=== PATIENT | female | born 1960 | race Caucasian/White ===

== ENCOUNTER 2020-06-11 09:24 | Outpatient (REF) | payer OTHER, SELFPAY ==
--- NOTE | ~2020-06-11 | XR_ITS ---
EXAMINATION: XR HAND, RIGHT CLINICAL INFORMATION: Right-sided hand pain COMPARISON: None TECHNIQUE: PA, lateral, and oblique views of the right hand. FINDINGS: There is no evidence of fracture, dislocation or destructive lesion. There is degenerative change at the second DIP joint with joint space narrowing and subchondral cystic change. Similar findings seen in the fifth DIP joint. There is marginal osteophyte formation at the first CMC joint. Carpal alignment normal. XR/XR hand RT min 3V IMPRESSION: Degenerative change noted. No evidence for fracture or acute process.
== END 2020-06-11 09:25 | disposition home or self-care (01) ==
LOC: HO.HOSX 09:24
PROVIDERS: PCP Internal Medicine; Visit Provider Orthopaedic Surgery
DX: M79.641 Pain in right hand (principal); M18.11 Unilateral primary osteoarthritis of first carpometacarpal joint, right hand; R20.0 Anesthesia of skin; R20.2 Paresthesia of skin
CPT/HCPCS: 20600; 73130; J1020

== ENCOUNTER 2020-08-01 09:54 | Outpatient (REF) | payer OTHER, SELFPAY ==
--- NOTE | 2020-08-01 | EMG_ITS ---
Right median and ulnar motor and sensory studies were performed. Right radial sensory study was performed and paraspinal muscles were tested with a needle. IMPRESSION: 1. Mild right median neuropathy across carpal tunnel. 2. Mild right ulnar neuropathy across cubital tunnel. MD DILEEP Aden/YANICK / [id number]
== END 2020-08-01 09:55 | disposition home or self-care (01) ==
LOC: HO.NEURO 09:54
PROVIDERS: PCP Internal Medicine; Visit Provider Orthopaedic Surgery
DX: R20.0 Anesthesia of skin (principal); R20.2 Paresthesia of skin
CPT/HCPCS: 95886; 95909

== ENCOUNTER → 2020-08-19 11:59 | Outpatient (BNVA) | payer OTHER, SELFPAY | PROVIDERS: PCP Internal Medicine; Visit Provider Orthopaedic Surgery ==

== ENCOUNTER 2020-09-13 09:32 | Outpatient (REF) | payer OTHER, SELFPAY ==
--- NOTE | ~2020-09-13 | MM_ITS ---
EXAMINATION: BONE DENSITOMETRY CLINICAL INDICATION: Screening for osteoporosis. COMPARISON: None (current study represents initial baseline exam). TECHNIQUE: Using a [employer] DXA System (software version: 13.1) manufactured by [employer], dual-energy x-ray absorptiometry was performed of the lumbar spine and left hip. The images are of good technical quality. Summary results are attached. FINDINGS: AP SPINE L1-L4: BMD 0.938 g/cm2, Z-score -0.6, T-score -2.0, osteopenia. LEFT FEMUR, NECK: BMD 0.713 g/cm2, Z-score -0.9, T-score -2.3, osteopenia. LEFT FEMUR, TOTAL: BMD 0.794 g/cm2, Z-score -0.6, T-score -1.7, osteopenia. IDENTIFIED RISK FACTORS: Current smoker. Parental hip fracture. Menopause. HISTORY OF FRACTURE: Spine. MEDICATIONS: Vitamin D. MM/XR DEXA axial skeleton IMPRESSION: 1. DIAGNOSIS: Osteopenia based on the lowest T-score value of -2.3 in the femoral neck applying World Health Organization criteria. 2. 10-YEAR FRACTURE RISK PREDICTION, FRAX: Major osteoporotic fracture (clinical spine, forearm, hip or shoulder) 32.4%. Hip fracture 5.9%. 3. Treatment Recommendations: NOF guidelines recommend consideration for treatment in postmenopausal women and men age 50 and older presenting with the following: -A hip or vertebral (clinical or morphometric) fracture. -T-score less than or equal to -2.5 at the femoral neck or spine after appropriate evaluation to exclude secondary causes. -Low bone mass at the hip or spine and a 10-year fracture probability by FRAX of greater than or equal to 3% for hip fracture or greater than or equal to 20% for major osteoporotic fracture based on the [place] adapted WHO algorithm. 4. Other Recommendations: All treatment decisions require clinical judgment and consideration of individual patient factors, including patient preferences, comorbidities, previous drug use, risk factors not captured in the FRAX model (e.g. frailty, falls, vitamin D deficiency, increased bone turnover, interval significant decline in bone density) and possible under or overestimation of fracture risk by FRAX. Additional medical evaluation for secondary cause of low bone mineral density may be appropriate. FUTURE SCAN RECOMMENDATION: People with diagnosed cases of osteoporosis or at high risk for fracture should have regular bone mineral density tests. For patients eligible for Medicare, routine testing is allowed once every 2 years. The testing frequency can be increased to one year for patients who have rapidly progressing disease, those who are receiving or discontinuing medical therapy to restore bone mass, or have additional risk factors.
--- NOTE | ~2020-09-13 | MM_ITS ---
EXAMINATION: MM SCREENING DIGITAL BREAST TOMOSYNTHESIS, BILATERAL CLINICAL INFORMATION: Screening. Asymptomatic. The lifetime risk of breast cancer based on the Tyrer-Cuzick Model is 7%. COMPARISON: Mammography: 12/15/2017, 11/12/2016, 10/03/2015 TECHNIQUE: Digital breast tomosynthesis is performed in both the craniocaudal and mediolateral oblique views along with computer-aided detection (CAD). Synthesized 2D images are generated from the tomosynthesis. FINDINGS: The breasts are extremely dense, which lowers the sensitivity of mammography (ACR BI-RADS breast composition Category d). There are no significant masses, abnormal calcifications, or other abnormalities. There is fine fibronodular parenchymal pattern similar to prior studies. No developing density. There are scattered punctate round calcifications again seen. The axilla and skin contours are unremarkable. MM/MM tomosynthesis screening BI IMPRESSION: No mammographic evidence of malignancy. ASSESSMENT: BI-RADS 2: Benign RECOMMENDATION: Routine annual mammography screening. This patient's information was entered into a reminder system with a target due date for their next mammogram.
== END 2020-09-13 09:33 | disposition home or self-care (01) ==
LOC: HO.MAMMO 09:32
PROVIDERS: Visit Provider Internal Medicine
DX: Z12.31 Encounter for screening mammogram for malignant neoplasm of breast (principal); Z13.820 Encounter for screening for osteoporosis; M85.80 Other specified disorders of bone density and structure, unspecified site; F17.200 Nicotine dependence, unspecified, uncomplicated; Z87.81 Personal history of (healed) traumatic fracture; Z78.0 Asymptomatic menopausal state; Z79.899 Other long term (current) drug therapy
CPT/HCPCS: 77063; 77067; 77080

== ENCOUNTER 2020-10-03 09:57 | Day surgery (SDC) | payer OTHER, SELFPAY ==
[2020-10-03 09:15] VITALS: BMI 22.3
[2020-10-03 10:08] VITALS: BP 117/69; PULSE 75; RESP 18; TEMP 37.2; O2SAT 96
[2020-10-03 11:25] VITALS: BP 112/54; PULSE 66; RESP 16; TEMP 36.1; O2SAT 96
--- NOTE | 2020-10-03 11:35 | MHC.SHP ---
Pre-Procedural Eval Section A Date of Service: 10/03/20 The patient is an INPATIENT: No The History & Physical has been completed within 30 days and I have reviewed it.: Yes Section B Chief Complaint: carpal tunnel syndrome.right Allergies: Allergies Allergy/AdvReac Type Severity Reaction Status Date / Time No Known Allergies Allergy Unverified 06/11/20 09:46 Plan I have reviewed the history and physical and performed a pertinent physical examination on my patient. No changes have occurred unless specified.
--- NOTE | 2020-10-03 11:35 | W.PM.OPN ---
Operative Note Operative Note Date of Service: 10/03/20 Narrative: Preop diagnosis: 1. Right Carpal tunnel syndrome Postop diagnosis: same Procedure: 1. Right Carpal tunnel release Surgeon: Tiki Lima MD Anesthesia: local block using 1% lidocaine with epinephrine Findings: Thickened transverse carpal ligament. EBL: Less than 5 mL Specimens: None Complications: None Disposition: Brought to recovery room in stable condition Plan: Follow-up for 7-10 days for wound check and suture removal Indications: The patient is 60 years old, with right carpal tunnel syndrome that has been unresponsive to nonoperative management. The risks and benefits of operative treatment including but not limited to risk of damage to blood vessels, nerves, tendons, infection, persistent pain, persistent symptoms, or possible need for additional surgery were discussed with the patient and the patient wishes to proceed with surgery. Procedure: Once consent was obtained a local block was performed using a combination of 1% lidocaine with epinephrine. The patient was then brought back to the operating suite and placed on the operative table in supine position. A tourniquet was applied to the proximal aspect of the right upper extremity and the limb was prepped and draped in a standard surgical fashion. Once assured that we had a good block, a 1.5 cm longitudinal incision was made centered over the carpal tunnel. The incision was made through the skin to the subcutaneous tissues using a #15 blade. Dissection was made down to the level of the transverse carpal ligament with care being taken to protect the palmar cutaneous nerve. Once the transverse carpal ligament was clearly visualized, a longitudinal incision was made in the transverse carpal ligament 1st using a #15 blade, then using tenotomy scissors under direct visualization. Care was taken to look for and protect the motor branch of the median nerve when seen in this area. Once satisfied with our carpal tunnel release the wound was copiously irrigated with normal saline and hemostasis was obtained with a brief period of local pressure. The skin edges were reapproximated with some 5.0 nylon suture material and a sterile dressing was applied. The patient appears to have tolerated the procedure well and with no complications. All digits were well vascularized at the conclusion of the case.
== END 2020-10-03 11:54 | disposition home or self-care (01) ==
PROVIDERS: PCP Internal Medicine; Visit Provider Orthopaedic Surgery
PROC: (CPT 64721; principal; 2020-10-03 11:00)
DX: G56.01 Carpal tunnel syndrome, right upper limb (principal); G56.21 Lesion of ulnar nerve, right upper limb; M18.11 Unilateral primary osteoarthritis of first carpometacarpal joint, right hand; R20.2 Paresthesia of skin; M79.7 Fibromyalgia; Q79.60 Ehlers-Danlos syndrome, unspecified; F41.9 Anxiety disorder, unspecified; Z79.899 Other long term (current) drug therapy
CPT/HCPCS: 64721

== ENCOUNTER 2020-10-09 09:40 | Outpatient (REF) | payer OTHER, SELFPAY ==
--- NOTE | 2020-10-09 09:44 | EMG_ITS ---
This is a 60-year-old woman with a 6-week history of left neck and shoulder pain with some ice pick like sensations, minimal radiation to the left upper extremity. She is 1 week status post right carpal tunnel release. She is known to have 2 herniated discs in her cervical spine from an MRI in the remote past. PHYSICAL EXAMINATION: She is alert and oriented with normal intellectual functions. Cranial nerves II through XII are normal. Muscle tone and strength are normal in all 4 extremities. Reflexes symmetrical. IMPRESSION: Rule out cervical radiculopathy. Nerve conduction EMG study: Normal electrodiagnostic study of the left upper extremity with no evidence of carpal tunnel syndrome or nerve entrapment. EMG of the left C5-T1 innervated muscles including paraspinal cervical muscles suggestive of mild chronic mid cervical radiculopathy. MD TOYA Arnold/YANICK / [id number]
== END 2020-10-09 09:41 | disposition home or self-care (01) ==
LOC: HO.NEURO 09:40
PROVIDERS: Visit Provider Orthopaedic Surgery
DX: R20.0 Anesthesia of skin (principal); R20.2 Paresthesia of skin
CPT/HCPCS: 95886; 95910

== ENCOUNTER → 2020-10-14 09:43 | Outpatient (BNVA) | payer OTHER, SELFPAY | PROVIDERS: Visit Provider Orthopaedic Surgery ==

== ENCOUNTER → 2020-11-05 08:59 | Outpatient (BNVA) | payer OTHER, SELFPAY | DX: R31.9 Hematuria, unspecified (principal) | CPT/HCPCS: 51798 ==

== ENCOUNTER 2020-11-20 08:18 | Outpatient (REF) | payer OTHER, SELFPAY ==
--- NOTE | ~2020-11-20 | XR_ITS ---
EXAMINATION: TWO-VIEW CHEST AND THREE-VIEW STERNUM CLINICAL INFORMATION: Contusion COMPARISON: Chest x-ray of April 10, 2008 TECHNIQUE: Two-view chest and three-view sternum FINDINGS: PA and lateral views of the chest does not demonstrate any evidence of acute parenchymal disease, pneumothorax, or pleural effusion. Heart normal size. No evidence of pulmonary edema. There is some blunting of the posterior sulcus likely related to small amount of pleural parenchymal scarring rather than effusion. No acute sternal fractures identified. No bone destruction is seen. There is some anterior soft tissue swelling present. XR/XR chest 2V IMPRESSION: No acute parenchymal disease within the chest. No sternal fracture identified.
--- NOTE | ~2020-11-20 | XR_ITS ---
EXAMINATION: TWO-VIEW CHEST AND THREE-VIEW STERNUM CLINICAL INFORMATION: Contusion COMPARISON: Chest x-ray of April 10, 2008 TECHNIQUE: Two-view chest and three-view sternum FINDINGS: PA and lateral views of the chest does not demonstrate any evidence of acute parenchymal disease, pneumothorax, or pleural effusion. Heart normal size. No evidence of pulmonary edema. There is some blunting of the posterior sulcus likely related to small amount of pleural parenchymal scarring rather than effusion. No acute sternal fractures identified. No bone destruction is seen. There is some anterior soft tissue swelling present. XR/XR sternum min 2V IMPRESSION: No acute parenchymal disease within the chest. No sternal fracture identified.
--- NOTE | ~2020-11-20 | US_ITS ---
EXAMINATION: US RETROPERITONEAL LIMITED (RENAL ONLY) CLINICAL INFORMATION: CT abdomen and pelvis 01/14/2016.. COMPARISON: None TECHNIQUE: Real-time imaging of the kidneys. FINDINGS: RIGHT KIDNEY: 10.3 x 3.9 x 5.7 cm (SAG x AP x TRV). The kidney is normal in size, contour, and echogenicity. Renal cortical thickness is normal. There are 2 stones measuring 3 mm in the upper and lower pole. No focal parenchymal lesions or hydronephrosis. LEFT KIDNEY: 11.2 x 4.9 x 5.5 cm (SAG x AP x TRV). The kidney is normal in size, contour, and echogenicity. Renal cortical thickness is normal. There is a 4 mm stone in the lower pole. There is a 1.7 x 1.2 x 1.5 cm cyst in the upper pole. No hydronephrosis. US/US renal BI IMPRESSION: Small bilateral renal stones. Small left renal cyst..
== END 2020-11-20 08:19 | disposition home or self-care (01) ==
LOC: HO.HMGCX 08:18
PROVIDERS: PCP Internal Medicine; Referring Provider Physician Assistant Medical
DX: S20.219A Contusion of unspecified front wall of thorax, initial encounter (principal); R31.9 Hematuria, unspecified
CPT/HCPCS: 71046; 71120; 76775

== ENCOUNTER → 2020-11-26 13:27 | Outpatient (BNVA) | payer OTHER, SELFPAY | PROVIDERS: PCP Internal Medicine ==

== ENCOUNTER 2020-12-20 11:47 | Outpatient (REF) | payer OTHER, SELFPAY | END 2020-12-20 11:48 | disposition home or self-care (01) | LOC: HO.HMGCLDS 11:47 | PROVIDERS: PCP Internal Medicine | DX: N39.0 Urinary tract infection, site not specified (principal) | CPT/HCPCS: 87086 ==

== ENCOUNTER → 2021-07-02 09:36 | Outpatient (BNVA) | payer OTHER, SELFPAY | PROVIDERS: PCP Internal Medicine; Visit Provider Orthopaedic Surgery | DX: M18.11 Unilateral primary osteoarthritis of first carpometacarpal joint, right hand (principal) | CPT/HCPCS: 20605; J1020 ==

== ENCOUNTER 2021-10-30 03:50 | Emergency (ER) | payer OTHER, SELFPAY ==
--- NOTE | ~2021-10-30 | CT_ITS ---
EXAMINATION: CT ABDOMEN AND PELVIS WITHOUT CONTRAST CLINICAL INFORMATION: Left flank pain COMPARISON: 01/14/2016 TECHNIQUE: Multidetector volumetric imaging was performed from the superior aspect of the liver through the pubic symphysis. Sagittal and coronal reformatted images were obtained on the technologist's workstation. This CT examination was performed using dose optimization techniques as appropriate, variously including the following: *Automated exposure control *Adjustment of mA and/or kV according to patient size (this includes techniques or standardized protocols for targeted exams where dose is matched to indication/reason for exam; i.e. extremities or head) *Use of iterative reconstruction technique DLP: 530 mGy-cm FINDINGS: LUNG BASES: The visualized lung bases are unremarkable. LIVER, GALLBLADDER, AND BILIARY TREE: The liver is normal in size, shape, and attenuation. No focal hepatic lesion or biliary ductal dilatation is present. The gallbladder is unremarkable with no evidence of radiopaque gallstones, gallbladder wall thickening, or obvious pericholecystic inflammatory changes. PANCREAS: Unremarkable. SPLEEN: Unremarkable. ADRENAL GLANDS: Unremarkable. KIDNEYS AND URETERS: The kidneys are normal in size, shape, and attenuation. There are a few punctate nonobstructive calculi within each kidney, numbering at least 3 within the left kidney and one within the right kidney. No ureteral calculi. No hydronephrosis or hydroureter. No perinephric stranding. BLADDER: Unremarkable. GASTROINTESTINAL TRACT: Sigmoid colonic diverticulosis. No evidence of diverticulitis. GI tract otherwise unremarkable. ABDOMINAL WALL: No significant hernia is appreciated. LYMPH NODES: Normal. VASCULAR: Unremarkable. PELVIC VISCERA: There are a few small uterine fibroids. No adnexal abnormalities. OSSEOUS STRUCTURES: Unremarkable. CT/CT abdomen pelvis wo IV con IMPRESSION: * No ureteral calculi or hydronephrosis. * There are a few bilateral punctate nonobstructive intrarenal calculi as described. * Sigmoid colonic diverticulosis without evidence of diverticulitis.
[2021-10-30 04:00] VITALS: BP 139/64; PULSE 77; RESP 18; TEMP 36.7; O2SAT 95; BMI 25.6
[2021-10-30 04:36] LABS: Appearance Urine Cloudy; Color Urine Yellow; Glucose Urine UA Negative (Negative); Leukocyte Esterase Urine Large (3+) (Negative); Nitrite Urine Positive (Negative); PH 5.5 (5.0-9.0); Urine Blood Moderate (2+) (Negative); Urine Ketones Negative (Negative); Urine Protein Trace mg/dL (Neg-Trace)
[2021-10-30 04:50] VITALS: BP 133/73; PULSE 69; RESP 17; TEMP 36.8; O2SAT 97
--- NOTE | 2021-10-30 04:50 | ED.GENADULT ---
HPI - General Adult General Chief complaint: Abdominal Pain Stated complaint: L side pain Time Seen by Provider: 10/30/21 04:35 Source: patient Mode of arrival: ambulatory Limitations: no limitations History of Present Illness HPI narrative: Patient comes to the emergency room complaining of left-sided flank pain for approximately 48 hours. Patient states that she was out with a friend, they were both drinking and laughing. Patient states that she might have left to heart and pulled a muscle. Patient denies any fever or chills, no trauma, no hematuria or dysuria. No abdominal pain. Related Data Home Medications Medication Instructions Recorded Confirmed atorvastatin 10 mg tablet 10 mg PO DAILY 06/11/20 11/20/20 atorvastatin 40 mg tablet 40 mg PO DAILY 06/11/20 11/20/20 clonazepam 1 mg tablet 1 mg PO BID PRN 06/11/20 11/20/20 pregabalin 75 mg capsule 75 mg PO BID 06/11/20 11/20/20 sertraline 100 mg tablet 100 mg PO DAILY 06/11/20 11/20/20 tramadol 50 mg tablet 50 mg PO Q6H PRN 06/11/20 11/20/20 Previous Rx's Medication Instructions Recorded hydrocodone 5 mg-acetaminophen 325 1 tab PO Q4-6H PRN pain #10 tabs 10/03/20 mg tablet cyclobenzaprine 5 mg tablet 5 mg PO TID PRN muscle spasm #10 11/20/20 tabs levofloxacin 500 mg tablet 500 mg PO Q24H UTI 14 days #14 tabs 11/26/20 ibuprofen 600 mg tablet 600 mg PO TID PRN fever or pain 10/30/21 #20 tabs levofloxacin 750 mg tablet 750 mg PO DAILY #10 tabs 10/30/21 phenazopyridine 100 mg tablet 100 mg PO TID 6 doses #6 tabs 10/30/21 Allergies Allergy/AdvReac Type Severity Reaction Status Date / Time No Known Allergies Allergy Verified 07/02/21 10:09 Review of Systems Review of Systems: Constitutional : No Weight loss, No Fever, No Chills, No Night Sweats, No Fatigue, No Malaise ENT/Mouth : No Hearing loss, No Ear Pain, No Nasal Congestion, No Sinus Pain, No Hoarseness, No sore throat, No Rhinorrhea, No Swallowing Difficulty Eyes: No Eye Pain, No Swelling, No Redness, No Foreign Body, No Discharge, No Vision Changes Cardiovascular : No Chest Pain, No SOB, No Dyspnea on Exertion, No Orthopnea, No Edema, No Palpitations Respiratory : No Cough, No Sputum, No Wheezing, No Smoke Exposure, No Dyspnea Gastrointestinal : No Nausea, No Vomiting, No Diarrhea, No Constipation, No abdominal Pain, No Hematochezia, No Melena Genitourinary : no irregular bleeding, No Dysuria, No Urinary Frequency, No Hematuria, No Urinary Incontinence, No Urgency, complaining of left-sided Flank Pain, No Urinary Flow Changes, No Hesitancy Musculoskeletal : No joint pain, No Myalgias, No Joint Swelling Skin : No Skin Lesions, No rash Neuro : No Weakness, No Numbness, No Paresthesias, No Loss of Consciousness, No Dizziness, No Headache Psych : No Anxiety/Panic, No Depression, No SI/HI/AH/VH, No Social Issues, Heme/Lymph: No Bruising, No Bleeding,No Lymphadenopathy Endocrine : No Polyuria, No Polydipsia, No Temperature Intolerance [facility] Past Medical History Medical History Anxiety Jammie-Danlos disease Hematuria High cholesterol History of adenomatous polyp of colon History of colonic diverticulitis Hyperplastic colon polyp Renal and ureteric calculus UTI (urinary tract infection) Surgical History History of appendectomy History of mandibular surgery History of surgery Family History Family History Sister Uterine cancer Father Pancreatic cancer Social History Social History Alcohol intake: never Advance Directives: Yes Advance Directives Information Provided: No Advance Directives on File: No Current occupational status: employed Current occupation: right handed/ IV NURSE Gender identity: Female Physical Exam ED Vital Signs: Vital Signs - 24 hr 10/30/21 04:00 10/30/21 04:50 Temperature 98.1 F 98.2 F Pulse Rate 77 69 Respiratory Rate 18 17 Blood Pressure 139/64 133/73 Pulse Oximetry 95 97 Oxygen Delivery Method Room Air Room Air BMI result Body Mass Index 25.6 Const Other: Appearance: Alert. Oriented X3. No acute distress. Eyes: Pupils equal, round and reactive to light. ENT: Pharynx normal. Neck: Normal inspection. Neck supple. No lymph nodes noted. No crepitus CVS: Normal heart rate and rhythm. Pulses normal. Normal S1 and S2 Respiratory: No respiratory distress. Breath sounds normal. No Wheezing. No rales Abdomen: Soft and nontender. No rigidity. No distention. Back: Positive CVA tenderness on the left side Skin: Skin warm and dry. Normal skin color. Normal skin turgor. Extremities: No lower extremity edema. No Lacerations. No Rash Neuro: Oriented X 3. No motor deficit. No sensory deficit. Moving all extremities. No slurred speech. CN 2 through 12 grossly intact Psych: calm, cooperative, normal affect Course Course Course Narrative: Patient's urine is positive for UTI. Clinically, patient has pyelonephritis. Patient given p.o. levofloxacin. Labs pending. Patient has history of kidney stones that have never removed per patient. CT pending. Patient's vitals are stable, normal blood pressure and pulse, no fever. At this time, 04:51, sepsis is not suspected. Five hundred thirty-nine, patient's white blood cell count is within normal limits, CT scan does not show ureterolithiasis. Patient's chemistry and lactic acid pending. Medical Decision Making Lab Data Result diagrams: 10/30/21 05:27 10/30/21 05:25 Labs: Lab Results 10/30/21 10/30/21 10/30/21 Range/Units 04:30 05:25 05:26 WBC (4.8-10.8) X10*3/uL RBC (4.20-5.50) X10*6/uL Hgb (12.0-16.0) g/dl Hct (37.0-47.0) % MCV (80.0-98.0) fL MCH (27.0-33.0) pg MCHC (31.0-35.0) g/dl RDW (11.0-16.0) % Plt Count (160-400) X10*3/uL MPV (9.4-12.3) fL Immature Gran % (Auto) (0.0-0.4) % Neut % (Auto) (45-73) % Lymph % (Auto) (20-40) % [place] % (Auto) (2-11) % Eos % (Auto) (0-4) % Baso % (Auto) (0-2) % Lymph # (Auto) (1.2-4.9) X10*3/uL [place] # (Auto) (0.1-1.2) X10*3/uL Eos # (Auto) (0.0-0.4) X10*3/uL Baso # (Auto) (0.0-0.2) X10*3/uL Abs Immat Gran (auto) (0.00-0.03) X10*3/uL Absolute Neuts (auto) (2.0-8.3) x10*3/uL Absolute Nucleated RBC (0.0-0.012) X10*3/uL Nucleated RBC % (auto) (0.0-0.2) /100WBC Sodium 142 (135-145) mmol/L Potassium 4.0 (3.3-5.1) mmol/L Chloride 108 (96-108) mmol/L Carbon Dioxide 23 (22-29) mmol/L Anion Gap 15 (12-20) BUN 18 H (9-16) mg/dL Creatinine 0.72 (0.5-1.4) mg/dL Estim Creat Clear Calc 71.8 Estimated GFR > 60 Random Glucose 96 (60-115) mg/dL Lactic Acid 0.4 L (0.5-2.0) mmol/L Calcium 8.8 (8.4-10.2) mg/dL Total Bilirubin 0.5 (0.0-1.0) mg/dL Direct Bilirubin 0.3 (0.0-0.5) mg/dL AST 21 (5-31) U/L ALT 21 (0-31) U/L Alkaline Phosphatase 50 (39-117) U/L Total Protein 7.1 (6.5-8.0) g/dL Albumin 4.2 (3.5-5.0) g/dL Lipase 34 (8-78) U/L Urine Color Yellow Urine Appearance Cloudy Urine pH 5.5 (5.0-9.0) Ur Specific [place] 1.020 (1.005-1.025) Urine Protein Trace (Neg-Trace) mg/dL Urine Glucose (UA) Negative (Negative) mg/dL Urine Ketones Negative (Negative) mg/dL Urine Blood Moderate (2+) H (Negative) Urine Nitrite Positive H (Negative) Ur Leukocyte Esterase Large (3+) H (Negative) Urine RBC 3-5 H (0-2) /HPF Urine WBC >50 H (0-5) /HPF Ur Squamous Epith Cells 6-10 (0-2) /HPF Urine Bacteria 4+ (None Seen) Hyaline Casts 0-2 (0-2) /LPF 10/30/21 Range/Units 05:27 WBC 8.9 (4.8-10.8) X10*3/uL RBC 4.26 (4.20-5.50) X10*6/uL Hgb 13.4 (12.0-16.0) g/dl Hct 40.5 (37.0-47.0) % MCV 95.1 (80.0-98.0) fL MCH 31.5 (27.0-33.0) pg MCHC 33.1 (31.0-35.0) g/dl RDW 13.6 (11.0-16.0) % Plt Count 314 (160-400) X10*3/uL MPV 7.8 L (9.4-12.3) fL Immature Gran % (Auto) 0.3 (0.0-0.4) % Neut % (Auto) 63.5 (45-73) % Lymph % (Auto) 26.1 (20-40) % [place] % (Auto) 7.7 (2-11) % Eos % (Auto) 1.9 (0-4) % Baso % (Auto) 0.5 (0-2) % Lymph # (Auto) 2.3 (1.2-4.9) X10*3/uL [place] # (Auto) 0.7 (0.1-1.2) X10*3/uL Eos # (Auto) 0.2 (0.0-0.4) X10*3/uL Baso # (Auto) 0.0 (0.0-0.2) X10*3/uL Abs Immat Gran (auto) 0.03 (0.00-0.03) X10*3/uL Absolute Neuts (auto) 5.6 (2.0-8.3) x10*3/uL Absolute Nucleated RBC 0.000 (0.0-0.012) X10*3/uL Nucleated RBC % (auto) 0.0 (0.0-0.2) /100WBC Sodium (135-145) mmol/L Potassium (3.3-5.1) mmol/L Chloride (96-108) mmol/L Carbon Dioxide (22-29) mmol/L Anion Gap (12-20) BUN (9-16) mg/dL Creatinine (0.5-1.4) mg/dL Estim Creat Clear Calc Estimated GFR Random Glucose (60-115) mg/dL Lactic Acid (0.5-2.0) mmol/L Calcium (8.4-10.2) mg/dL Total Bilirubin (0.0-1.0) mg/dL Direct Bilirubin (0.0-0.5) mg/dL AST (5-31) U/L ALT (0-31) U/L Alkaline Phosphatase (39-117) U/L Total Protein (6.5-8.0) g/dL Albumin (3.5-5.0) g/dL Lipase (8-78) U/L Urine Color Urine Appearance Urine pH (5.0-9.0) Ur Specific [place] (1.005-1.025) Urine Protein (Neg-Trace) mg/dL Urine Glucose (UA) (Negative) mg/dL Urine Ketones (Negative) mg/dL Urine Blood (Negative) Urine Nitrite (Negative) Ur Leukocyte Esterase (Negative) Urine RBC (0-2) /HPF Urine WBC (0-5) /HPF Ur Squamous Epith Cells (0-2) /HPF Urine Bacteria (None Seen) Hyaline Casts (0-2) /LPF Imaging Data CT scan - abdomen: Radiologist's impression: CLINICAL INFORMATION: Left flank pain? COMPARISON: 01/14/2016? TECHNIQUE: Multidetector volumetric imaging was performed from the superior aspect of the liver through the pubic symphysis. Sagittal and coronal reformatted images were obtained on the technologist's workstation.? This CT examination was performed using dose optimization techniques as appropriate, variously including the following: *Automated exposure control *Adjustment of mA and/or kV according to patient size (this includes techniques or standardized protocols for targeted exams where dose is matched to indication/reason for exam; i.e. extremities or head) *Use of iterative reconstruction technique DLP: 530 mGy-cm FINDINGS: LUNG BASES: The visualized lung bases are unremarkable.? LIVER, GALLBLADDER, AND BILIARY TREE: The liver is normal in size, shape, and attenuation. No focal hepatic lesion or biliary ductal dilatation is present. The gallbladder is unremarkable with no evidence of radiopaque gallstones, gallbladder wall thickening, or obvious pericholecystic inflammatory changes.? PANCREAS: Unremarkable.? SPLEEN: Unremarkable.? ADRENAL GLANDS: Unremarkable.? KIDNEYS AND URETERS: The kidneys are normal in size, shape, and attenuation. There are a few punctate nonobstructive calculi within each kidney, numbering at least 3 within the left kidney and one within the right kidney. No ureteral calculi. No hydronephrosis or hydroureter. No perinephric stranding. ? BLADDER: Unremarkable.? GASTROINTESTINAL TRACT: Sigmoid colonic diverticulosis. No evidence of diverticulitis. GI tract otherwise unremarkable.? ABDOMINAL WALL: No significant hernia is appreciated.? LYMPH NODES: Normal. VASCULAR: Unremarkable. PELVIC VISCERA: There are a few small uterine fibroids. No adnexal abnormalities.? OSSEOUS STRUCTURES: Unremarkable.? CT/CT abdomen pelvis wo IV con IMPRESSION: *? No ureteral calculi or hydronephrosis. *? There are a few bilateral punctate nonobstructive intrarenal calculi as described. *? Sigmoid colonic diverticulosis without evidence of diverticulitis. Discharge Plan Discharge Clinical Impression: Pyelonephritis Patient Disposition: Home, Self-Care Instructions: Kidney Infection (ED) Additional Instructions: Please follow-up with your primary care physician tomorrow. If you have any worsening or new symptoms, please return to the emergency room or call 911 Prescriptions: New levofloxacin 750 mg tablet 750 mg PO DAILY Qty: 10 0RF phenazopyridine 100 mg tablet 100 mg PO TID Qty: 6 0RF ibuprofen 600 mg tablet 600 mg PO TID PRN (Reason: fever or pain) Qty: 20 0RF No Action hydrocodone-acetaminophen 5-325 mg tablet 1 tab PO Q4-6H PRN (Reason: pain) Qty: 10 0RF cyclobenzaprine 5 mg tablet 5 mg PO TID PRN (Reason: muscle spasm) Qty: 10 0RF levofloxacin 500 mg tablet 500 mg PO Q24H 14 Days Qty: 14 0RF atorvastatin 40 mg tablet 40 mg PO DAILY clonazepam 1 mg tablet 1 mg PO BID PRN tramadol 50 mg tablet 50 mg PO Q6H PRN sertraline 100 mg tablet 100 mg PO DAILY pregabalin 75 mg capsule 75 mg PO BID atorvastatin 10 mg tablet 10 mg PO DAILY
[2021-10-30 05:01] LABS: Bacteria Urine 4+ (None Seen); Hyaline Casts Urine 0-2 /LPF (0-2); UACC Culture Trigger YES; WBC Urine >50 /HPF (0-5)
[2021-10-30] MEDS: levoFLOXacin 750 MG TABLET PO (05:13)
[2021-10-30 05:31] LABS: MANUAL DIFF FLAG NO
[2021-10-30 05:32] LABS: Basophils Percent Auto 0.5 % (0-2); Eosinophils Absolute Auto 0.2 X10*3/uL (0.0-0.4); Eosinophils Percent Auto 1.9 % (0-4); Hematocrit 40.5 % (37.0-47.0); Hemoglobin 13.4 g/dl (12.0-16.0); Imm Gran Abs Auto 0.03 X10*3/uL (0.00-0.03); Imm Gran Pct Auto 0.3 % (0.0-0.4); Lymphocytes Absolute Auto 2.3 X10*3/uL (1.2-4.9); Lymphocytes Percent Auto 26.1 % (20-40); Mean Corpuscular HGB Conc 33.1 g/dl (31.0-35.0); Mean Corpuscular Hemoglobin 31.5 pg (27.0-33.0); Mean Corpuscular Volume 95.1 fL (80.0-98.0); Mean Platelet Volume 7.8 fL (9.4-12.3); Monocytes Absolute Auto 0.7 X10*3/uL (0.1-1.2); Monocytes Percent Auto 7.7 % (2-11); Neutrophils Absolute Auto 5.6 x10*3/uL (2.0-8.3); Neutrophils Percent Auto 63.5 % (45-73); Platelet Count 314 X10*3/uL (160-400); Red Blood Count 4.26 X10*6/uL (4.20-5.50); Red Cell Distribution Width 13.6 % (11.0-16.0); White Blood Count 8.9 X10*3/uL (4.8-10.8)
[2021-10-30 05:42] LABS: Lactic Acid 0.4 mmol/L (0.5-2.0)
[2021-10-30 05:51] LABS: Alanine Aminotransferase 21 U/L (0-31); Albumin Level 4.2 g/dL (3.5-5.0); Alkaline Phosphatase 50 U/L (39-117); Anion Gap 15 (12-20); Aspartate Amino Transferase 21 U/L (5-31); Bilirubin Direct 0.3 mg/dL (0.0-0.5); Bilirubin Total 0.5 mg/dL (0.0-1.0); Blood Urea Nitrogen 18 mg/dL (9-16); Calcium 8.8 mg/dL (8.4-10.2); Carbon Dioxide 23 mmol/L (22-29); Chloride 108 mmol/L (96-108); Creatinine Clr Calc Pharmacy 71.8; Estimated Glomerular Filt Rate > 60; Glucose Random 96 mg/dL (60-115); Lipase 34 U/L (8-78); Sodium 142 mmol/L (135-145); Total Protein 7.1 g/dL (6.5-8.0)
== END 2021-10-30 06:10 | disposition home or self-care (01) ==
PROVIDERS: Emergency Provider Emergency Medicine; PCP Internal Medicine
DX: N39.0 Urinary tract infection, site not specified (principal); B96.20 Unspecified Escherichia coli [E. coli] as the cause of diseases classified elsewhere; N20.0 Calculus of kidney; Z87.442 Personal history of urinary calculi
CPT/HCPCS: 36415; 74176; 80048; 80076; 81001; 83605; 83690; 85025; 87040; 87086; 87088; 87186; 99283; 99284

== ENCOUNTER 2021-12-03 12:44 | Outpatient (REF) | payer OTHER, SELFPAY ==
--- NOTE | ~2021-12-03 | XR_ITS ---
EXAMINATION: XR RIGHT KNEE XR AP BILATERAL KNEE CLINICAL INFORMATION: Right knee pain. COMPARISON: None. TECHNIQUE: AP bilateral knee standing. Right knee 2 views. FINDINGS: AP Bilateral Knee: There is a mild reduction in medial compartment joint space both knees. No acute fracture, dislocation or loose body seen. The soft tissues are normal. Right Knee: There is mild loss of patellofemoral compartment joint space without bony erosive changes. No acute fracture, dislocation or loose body seen. There is a soft tissue calcification lateral femoral condyle. XR/XR knee RT 2V IMPRESSION: Mild degenerative changes tricompartment right knee. No visible fracture or loose body seen. No abnormal joint effusion. Small calcification adjacent to lateral femoral condyle. Question calcific tendinitis. Mild degenerative changes also seen in the medial and lateral compartments left knee.
--- NOTE | ~2021-12-03 | XR_ITS ---
EXAMINATION: XR RIGHT KNEE XR AP BILATERAL KNEE CLINICAL INFORMATION: Right knee pain. COMPARISON: None. TECHNIQUE: AP bilateral knee standing. Right knee 2 views. FINDINGS: AP Bilateral Knee: There is a mild reduction in medial compartment joint space both knees. No acute fracture, dislocation or loose body seen. The soft tissues are normal. Right Knee: There is mild loss of patellofemoral compartment joint space without bony erosive changes. No acute fracture, dislocation or loose body seen. There is a soft tissue calcification lateral femoral condyle. XR/XR knee standing BI IMPRESSION: Mild degenerative changes tricompartment right knee. No visible fracture or loose body seen. No abnormal joint effusion. Small calcification adjacent to lateral femoral condyle. Question calcific tendinitis. Mild degenerative changes also seen in the medial and lateral compartments left knee.
== END 2021-12-03 12:45 | disposition home or self-care (01) ==
LOC: HO.HOSX 12:44
PROVIDERS: Visit Provider Physician Assistant
DX: M25.561 Pain in right knee (principal); M25.562 Pain in left knee
CPT/HCPCS: 73560; 73565

== ENCOUNTER 2021-12-04 12:28 | Outpatient (REF) | payer OTHER, SELFPAY ==
--- NOTE | ~2021-12-04 | MM_ITS ---
EXAMINATION: MM SCREENING DIGITAL BREAST TOMOSYNTHESIS, BILATERAL CLINICAL INFORMATION: Screening. Asymptomatic. The lifetime risk of breast cancer based on the Tyrer-Cuzick Model is 7%. COMPARISON: Mammography: 09/13/2020, 12/15/2017, 11/12/2016 TECHNIQUE: Digital breast tomosynthesis is performed in both the craniocaudal and mediolateral oblique views along with computer-aided detection (CAD). Synthesized 2D images are generated from the tomosynthesis. FINDINGS: The breasts are extremely dense, which lowers the sensitivity of mammography (ACR BI-RADS breast composition Category d). Breast tissue composition borders on heterogeneously dense. There is fine fibronodular parenchymal pattern similar to prior studies. No developing density or architectural abnormality. There are no significant masses, abnormal calcifications, or other abnormalities. No significant changes. MM/MM tomosynthesis screening BI IMPRESSION: No mammographic evidence of malignancy. ASSESSMENT: BI-RADS 1: Negative RECOMMENDATION: Routine annual mammography screening. This patient's information was entered into a reminder system with a target due date for their next mammogram.
== END 2021-12-04 12:29 | disposition home or self-care (01) ==
LOC: HO.MAMMO 12:28
PROVIDERS: PCP Internal Medicine; Visit Provider Internal Medicine
DX: Z12.31 Encounter for screening mammogram for malignant neoplasm of breast (principal)
CPT/HCPCS: 77063; 77067

== ENCOUNTER → 2022-01-30 10:57 | Outpatient (BNVA) | payer OTHER, SELFPAY | PROVIDERS: PCP Internal Medicine; Visit Provider Urology | DX: R31.29 Other microscopic hematuria (principal); N39.0 Urinary tract infection, site not specified; N95.8 Other specified menopausal and perimenopausal disorders | CPT/HCPCS: 52000 ==

== ENCOUNTER → 2022-03-09 13:25 | Outpatient (BNVA) | payer OTHER, SELFPAY | PROVIDERS: PCP Internal Medicine; Visit Provider Nurse Practitioner Family | DX: R31.29 Other microscopic hematuria (principal); N39.0 Urinary tract infection, site not specified; N95.8 Other specified menopausal and perimenopausal disorders | CPT/HCPCS: 51798 ==

== ENCOUNTER → 2022-06-08 10:27 | Outpatient (BNVA) | payer OTHER, SELFPAY | PROVIDERS: PCP Internal Medicine; Visit Provider Nurse Practitioner Family | DX: R31.29 Other microscopic hematuria (principal); N39.0 Urinary tract infection, site not specified | CPT/HCPCS: 51798 ==

== ENCOUNTER → 2022-07-14 10:36 | Outpatient (BNVA) | payer OTHER, SELFPAY | PROVIDERS: PCP Internal Medicine; Visit Provider Orthopaedic Surgery | DX: R20.0 Anesthesia of skin (principal); R20.2 Paresthesia of skin; M18.11 Unilateral primary osteoarthritis of first carpometacarpal joint, right hand; Q79.60 Ehlers-Danlos syndrome, unspecified | CPT/HCPCS: 20600; J1020 ==

== ENCOUNTER 2022-07-21 14:17 | Outpatient (REF) | payer OTHER, SELFPAY ==
[2022-07-21 16:36] LABS: Appearance Urine Clear; Color Urine Dark Yellow; Glucose Urine UA Negative (Negative); Leukocyte Esterase Urine Moderate (2+) (Negative); Nitrite Urine Negative (Negative); PH 5.5 (5.0-9.0); UMIC TRIGGER UA YES; Urine Blood Moderate (2+) (Negative); Urine Ketones Negative (Negative); Urine Protein Negative (Neg-Trace)
[2022-07-21 16:46] LABS: Bacteria Urine None Seen (None Seen); Calcium Oxalate Crystals Urine Present; Hyaline Casts Urine 0-2 /LPF (0-2); WBC Urine 21-50 /HPF (0-5)
== END 2022-07-21 14:18 | disposition home or self-care (01) ==
LOC: HO.HMGCLDS 14:17
PROVIDERS: PCP Internal Medicine; Visit Provider Nurse Practitioner Family
DX: N39.0 Urinary tract infection, site not specified (principal)
CPT/HCPCS: 81001; 87086; 87088; 87186

== ENCOUNTER 2022-08-27 14:21 | Outpatient (REF) | payer OTHER, SELFPAY ==
--- NOTE | 2022-08-27 14:24 | EMG_ITS ---
Please see scanned EMG / Nerve Conduction Report. MTDD
== END 2022-08-27 14:22 | disposition home or self-care (01) ==
LOC: HO.NEURO 14:21
PROVIDERS: PCP Internal Medicine; Visit Provider Orthopaedic Surgery
DX: R20.0 Anesthesia of skin (principal); R20.2 Paresthesia of skin
CPT/HCPCS: 95885; 95910

== ENCOUNTER 2022-10-07 09:42 | Outpatient (AMB) | payer OTHER, SELFPAY ==
--- NOTE | 2022-10-07 10:40 | A.OFFVIS_ITS ---
Intake Vital Signs 10/07/22 10:45 Height 5 ft 2 in Weight 140 lb BMI 25.6 Intake Visit Reasons: Ov- EMG Review Left Hand Intake Note: Yi 62 yr old female presents today s/p right basal joint from 07/12/22. States injection is still helping. Presents today for her left hand EMG review. Reports she is still experiencing numbness. Allergies No Known Allergies Allergy (Verified 10/07/22 10:50) HPI Ov- EMG Review Left Hand HPI Details Yi is a 62 year old right hand dominant woman who presents for a NCS review of her left hand numbness. She is S/P C-spine fusion in 12/2020, initially with good results. She says she is still experiencing numbness in her small finger and ulnar half of her hand. She says her symptoms are intermittent, but daily. She also says t he back of her legs are beginning to experience numbness as well, and she thinks these issues are related to her neck. She says she also experiences pain in the left side of her neck at night which r adiates into the posterior of her shoulder and wakes her up at night She has right basal joint OA, and a hx of relief from steroid injections. her last injection was on and she says this is still giving her relief. [facility] Medical History Anxiety Jammie-Danlos disease Hematuria High cholesterol History of adenomatous polyp of colon History of colonic diverticulitis Hyperplastic colon polyp Microscopic hematuria Osteoporosis Recurrent UTI Renal and ureteric calculus UTI (urinary tract infection) Surgical History H/O Spinal surgery History of appendectomy History of mandibular surgery History of surgery Family History Sister Uterine cancer Father Pancreatic cancer Social History Alcohol intake: never Current occupational status: employed Current occupation: right handed/ IV NURSE Gender identity: Female Review of Systems Const All systems reviewed & are unremarkable except as noted in HPI and below Physical Exam Vital Signs: BMI result Body Mass Index 25.6 Const General: no acute distress and alert Orientation/consciousness: patient oriented x3 Neuro General: patient oriented x3 Extrem Other: Evaluation of Left Upper Extremity: The patient is alert, oriented, and in no acute distress Neuro: Median, Ulnar, Radial nerves motor and sensory intact and sensation is normal to the tips of all digits No thenar or intrinsic wasting Good APB muscle belly firing and good finger cross Good finger ABduction & ADduction Vascular: Cap refill brisk ROM: She can make a fist and extend all her digits Nerve Conduction Study: IMPRESSION: Normal nerve conduction study of the LUE with no evidence of carpal tunnel syndrome or ulnar nerve entrapment Normal EMG of the left C5-T1 innervated muscles Dr. Sevilla 08/27/22 Psych Appearance: grossly normal Affect: normal affect Attitude: cooperative Assessment & Plan Assessment & Plan (1) Numbness and tingling in left hand: Code(s): R20.0 - Anesthesia of skin; R20.2 - Paresthesia of skin (2) Arthritis of carpometacarpal (CMC) joint of right thumb: Code(s): M18.11 - Unilateral primary osteoarthritis of first carpometacarpal joint, right hand Plan Assessment and plan: 1. Left small finger numbness Intermittent, but daily This began about 5-6 months ago. Of note she is S/P C-spine ACDF in 12/2020 that initially had good results. Her NCS was unremarkable for Carpal or Cubital tunnel syndrome I suspect this may be related to her C-spine fusion as she is also developing numbness in the posterior BLE, as well as pain in her neck I referred her to Pain Management for evaluation to see if these problems could be coming from her neck If her symptoms to not improve after seeing Pain Management then she may benefit from a Cubital tunnel release, as it is possible she may have cubital tunnel syndrome despite a negative NCS She will follow up in 6 months. 2. Right basal joint osteoarthritis Doing well S/P basal joint injections on 07/14/22, 07/02/21, and 06/11/20 She says she is still doing well following her most recent injection 3. Right carpal tunnel syndrome, S/P release DOS: 10/03/20 Normal sensation 4. Right cubital tunnel syndrome, mild on nerve conduction studies This has been asymptomatic. 5. Right palmar Dupuytren's nodule, in line with the right middle finger There is no current contracture at this time Scribed for Tiki Lima MD by Roger Butts, site medical director, on 10/07/22 at 11:15 AM, EST. Orders: Referrals Pain Management Referral M54.2 - Cervicalgia, R20.0 - Anesthesia of skin, R20.2 - Paresthesia of skin, Z98.890 - Other specified postprocedural states Coding Level of Care Code Est Pt Level 4 (79502) Diagnoses Numbness and tingling in left hand R20.0; R20.2 Arthritis of carpometacarpal (CMC) joint of right thumb M18.11
[2022-10-07 10:45] VITALS: BMI 25.6
== END 2022-10-07 11:23 | disposition home or self-care (01) ==
PROVIDERS: PCP Internal Medicine; Visit Provider Orthopaedic Surgery
DX: R20.0 Anesthesia of skin (principal); R20.2 Paresthesia of skin; M18.11 Unilateral primary osteoarthritis of first carpometacarpal joint, right hand
CPT/HCPCS: 99214

== ENCOUNTER → 2022-10-07 09:42 | Outpatient (BNVA) | payer OTHER, SELFPAY | PROVIDERS: PCP Internal Medicine; Visit Provider Orthopaedic Surgery ==

== ENCOUNTER 2022-10-26 08:04 | Outpatient (AMB) | payer OTHER, SELFPAY ==
--- NOTE | 2022-10-26 08:11 | A.OFFVIS_ITS ---
Intake Vital Signs 10/26/22 08:12 Height 5 ft 2 in Weight 138 lb BMI 25.2 BP 107/64 Blood Pressure Location Lt brachial Position Sitting Respiration 14 Pulse 91 Pulse Source Pulse Oximeter Pulse Oximetry (%) 97 Oxygen Delivery Method Room Air Intake Visit Reasons: Anesthesia of skin Allergies No Known Allergies Allergy (Verified 10/26/22 08:13) Medication List - Last Reconciled 10/26/22 by Staci Pizarro LPN albuterol sulfate 90 mcg/actuation inhalation atorvastatin 40 mg PO DAILY bupropion HCl 150 mg PO QAM clonazepam 1 mg PO BID PRN estradiol 0.01%(0.1mg/gram) (Estrace) 1 g vaginal 3XW ezetimibe 10 mg PO DAILY ibuprofen 600 mg PO TID PRN nitrofurantoin macrocrystal 50 mg PO BEDTIME 90 days sertraline 100 mg PO DAILY HPI Anesthesia of skin HPI Details 62-year-old female is presenting today for a new patient evaluation of anesthesia of skin. The patient was referred by Dr. Tiki Lima. She has a history of osteoporosis with multiple bone fractures in the spine and ribs. She has been diagnosed with Jammie-Danlos syndrome. She has a history of dislocated hips and jaws. The patient is a retired on call pharmacy technician, which involved starting IVs. She had cervical spine fusion in 12/2020, which initially had good benefits. She had right basal joint injections on 06/11/20, 07/02/2021, and 07/14/22. She had a right carpal tunnel release on 10/03/20 with good benefits. She also has numbness and pins and needles sensations in her left-hand fingers. The pain intensity is on average 7/10, with the worst being 9/10 in intensity, which is constant in nature. The pain is described as a stabbing and burning sensation in her left shoulder as well as an ache in her neck and back region. She has difficulty sleeping due to pain. She has not tried physical therapy in the past for back pain. She is currently not taking any medication for osteoporosis. She has been experiencing occasional numbness in her posterior leg about two weeks ago, which she thinks is related to her neck. She has a Dupuytren's nodule in line with her right middle finger, with no contracture or skin changes. She also has a history of fibromyalgia, which was well controlled on Lyrica in the past. She is currently taking clonazepam 1 mg as needed for anxiety. [facility] Medical History Anxiety Jammie-Danlos disease Hematuria High cholesterol History of adenomatous polyp of colon History of colonic diverticulitis Hyperplastic colon polyp Microscopic hematuria Osteoporosis Recurrent UTI Renal and ureteric calculus UTI (urinary tract infection) Surgical History H/O Spinal surgery History of appendectomy History of mandibular surgery History of surgery Family History Sister Uterine cancer Father Pancreatic cancer Social History Alcohol intake: never Current occupational status: employed Current occupation: right handed/ IV NURSE Gender identity: Female Review of Systems Const All systems reviewed & are unremarkable except as noted in HPI and below Physical Exam Vital Signs: Last Vital Signs Pulse 91 10/26/22 08:12 Resp 14 10/26/22 08:12 BP 107/64 10/26/22 08:12 Pulse Ox 97 10/26/22 08:12 Oxygen Delivery Method Room Air 10/26/22 08:12 BMI result Body Mass Index 25.2 General: Appears afebrile. Alert and oriented. Mood and affect appropriate. Follows and participates in conversation appropriately. Respiratory effort is unlabored. Able to transition from sit to stand unassisted. Ambulates with bilaterally normal heel strike and toe off. Lateral bending of the neck reproduces pain especially on left side. Facet loading is positive. Extension is less painful. Results Reviewed Results Reviewed: 08/27/22: EMG & NCV Assessment & Plan Assessment & Plan (1) Intractable cervical neuropathic pain: Code(s): M79.2 - Neuralgia and neuritis, unspecified (2) Cervical post-laminectomy syndrome: Code(s): M96.1 - Postlaminectomy syndrome, not elsewhere classified Plan Symptoms appear to be secondary to cervical post-laminectomy syndrome with radicular symptoms in the LUE. Pain is primary in the neck and shoulder. Will schedule her for Left C3 vs C4 medial branch nerve stimulator placement. Discussed the risks and benefits of the procedure with the patient in detail. If temporary PNS is not helpful, will consider cervical SCS. All questions were a nswered. The patient is on board with the plan. We will file a PA and keep her updated. Recommended taking her anxiety medication prior to the procedure. Also recommend discussing bisphosphonate therapy with detective lieutenant to minimize risk of future osteoporotic fractures. Justification for interventional therapy: ? Patient with average pain > 6/10 ? Patient has exhausted various therapies including past surgeries, physical therapy, oral medication including pregabalin, hand injections Scribed for Dr. Sparks by Chon Johnson, medical technologist chemistry, on 10/26/2022. I, Dr. Sparks, have personally reviewed and agree with the information entered by the scribe. Coding Level of Care Code New Pt Level 4 (23298) Diagnoses Intractable cervical neuropathic pain M79.2 Cervical post-laminectomy syndrome M96.1
[2022-10-26 08:12] VITALS: BP 107/64; PULSE 91; RESP 14; O2SAT 97; BMI 25.2
== END 2022-10-26 08:46 | disposition home or self-care (01) ==
PROVIDERS: PCP Internal Medicine; Visit Provider Internal Medicine
DX: M79.2 Neuralgia and neuritis, unspecified (principal); M96.1 Postlaminectomy syndrome, not elsewhere classified
CPT/HCPCS: 99204

== ENCOUNTER → 2022-10-26 08:04 | Outpatient (BNVA) | payer OTHER, SELFPAY | PROVIDERS: PCP Internal Medicine; Visit Provider Internal Medicine ==

== ENCOUNTER 2022-11-24 08:30 | Outpatient (REF) | payer OTHER, SELFPAY ==
--- NOTE | ~2022-11-24 | US_ITS ---
EXAMINATION: US RETROPERITONEAL COMPLETE (RENAL) CLINICAL INFORMATION: Other microscopic hematuria. Frequent UTI. COMPARISON: CT abdomen and pelvis 10/30/2021. Renal ultrasounds of 02/19/2021. TECHNIQUE: Real-time imaging of the kidneys and bladder. FINDINGS: RIGHT KIDNEY: 11.2 x 4.1 x 6.6 cm (SAG x AP x TRV). The kidney is normal in size, contour, and echogenicity. Renal cortical thickness is normal. No focal parenchymal lesions or hydronephrosis. 3 mm nonobstructing calculus in the lower pole. LEFT KIDNEY: 11.1 x 4.8 x 6.1 cm (SAG x AP x TRV). The kidney is normal in size, contour, and echogenicity. Renal cortical thickness is normal. No hydronephrosis. 4 mm nonobstructing calculus in the lower pole. 3 mm nonobstructing calculus in the mid kidney. 1.5 cm simple cyst in the mid upper kidney. No follow-up imaging is recommended. BLADDER: Well distended and normal. Bilateral ureteral jets are demonstrated. Prevoid bladder volume is 205 mL. Postvoid bladder volume is 23.4 mL. US/US retroperitoneal comp IMPRESSION: Bilateral nonobstructing renal calculi. No hydronephrosis.
== END 2022-11-24 08:31 | disposition home or self-care (01) ==
LOC: HO.HMGCX 08:30
PROVIDERS: PCP Internal Medicine; Visit Provider Nurse Practitioner Family
DX: R31.29 Other microscopic hematuria (principal); N39.0 Urinary tract infection, site not specified
CPT/HCPCS: 76770

== ENCOUNTER 2022-12-10 09:56 | Outpatient (AMB) | payer OTHER, SELFPAY ==
--- NOTE | 2022-12-10 10:00 | MHC.OFFVIS ---
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 She has a past medical history of microscopic hematuria, recurrent urinary tract infections, osteoporosis, renal calculi, hypercholesteremia, anxiety, and Jmamie-Danlos disease. She presents to the office today for follow-up of her recurrent urinary tract infection infections, genitourinary syndrome of menopause, and microscopic hematuria. When asked she reports to be doing and feeling well. She denies having had any urinary tract infections and or urinary tract infection like symptoms since her last office visit here. She reports compliance with Estrace cream as prescribed. She denies any bothersome urinary issues or concerns at this time. She reports be happy with current voiding parameters. In office urinalysis results reviewed with the patient today. PVR 0 mL. When asked she denies urinary urgency, urinary frequency, dysuria, hematuria, change in urinary stream, flank pain, fever, and or chills. Recent retroperitoneal ultrasound results reviewed with the patient today. Right kidney with no lesions or hydronephrosis. 3 mm nonobstructing calculus in the lower pole. Left kidney with no hydronephrosis. 4 mm nonobstructing calculus in the lower pole. 3 mm nonobstructing calculus in the mid kidney. 1.5 cm simple cyst in the mid upper kidney. No follow-up imaging is recommended per radiology report. The bladder is well distended and normal. Pre void bladder volume is approximately 200 mL. Postvoid bladder volume is approximately 25 mL. When asked she reports to not be drinking plenty of water daily. Discussed at length potential causes for nephrolithiasis. She otherwise denies any other issues or concerns at this time. ON LICENSE OF [facility] Medical History Anxiety Jammie-Danlos disease Hematuria High cholesterol History of adenomatous polyp of colon History of colonic diverticulitis Hyperplastic colon polyp Microscopic hematuria Osteoporosis Recurrent UTI Renal and ureteric calculus UTI (urinary tract infection) Surgical History H/O Spinal surgery History of appendectomy History of mandibular surgery History of surgery Family History Sister Uterine cancer Father Pancreatic cancer Social History Alcohol intake: never Current occupational status: employed Current occupation: right handed/ IV NURSE Gender identity: Female Physical Exam Const General: cooperative, healthy appearing, comfortable, no acute distress, well developed, alert and awake Orientation/consciousness: patient oriented x3 Limitations: no limitations HEENT Head: Yes normal to inspection, Yes normocephalic and Yes atraumatic Ears: hearing grossly normal bilaterally Eyes General: appearance normal, both eyes and all related structures Neck Neck: Yes normal visual inspection and Yes trachea midline Chest Chest palpation & inspection: normal inspection of the chest Resp Effort & Inspection: normal respiratory effort and able to speak in complete sentences Cardio Rate: regular rate GI Inspection: Yes normal to inspection General: Yes no CVA tenderness Back/Spine/Pelvis Back: no CVA tenderness Skin General skin exam: no rashes or lesions noted Neuro General: patient oriented x3 Extrem General: Yes normal to inspection Psych Appearance: grossly normal and well kempt Mental Status: mental status grossly normal Speech and movement: Normal speech and movement present and Clear speech present Affect: normal affect Attitude: cooperative Thought process: Normal thought process present Thought content: Normal thought content present Insight: Good insight present (Psych) Judgement: Good judgement present (Psych) Office Procedures Post Void Residual Post Residual Void Post Void Residual (PVR): 0 46239-Qoht Void Residual by ultrasound Results AMB Urinalysis, Automated UA Leukoctes 500 Shagufta/uL Last Edit by Vipshophomer Nichols on 12/10/22 10:31 UA Nitrite Negative Last Edit by Vipshophomer Nichols on 12/10/22 10:31 UA Urobilinogen 0.2 mg/dL Last Edit by Vipshophomer Nichols on 12/10/22 10:31 UA Protein 0 mg/dL Last Edit by [employer] Nichols on 12/10/22 10:31 UA pH 6.0 Last Edit by [employer] on 12/10/22 10:31 UA Blood 25 Og/uL Last Edit by [employer] on 12/10/22 10:31 UA Specific [place] 1.005 Last Edit by [employer] on 12/10/22 10:31 UA Ketone Negative Last Edit by [employer] on 12/10/22 10:31 UA Bilirubin 0 mg/dL Last Edit by [employer] on 12/10/22 10:31 UA Glucose 0 mg/dL Last Edit by [employer] on 12/10/22 10:31 Results Reviewed Results Reviewed: Laboratory Last Values Urine pH (Auto) 6.0 12/10/22 10:05 Specific [place] (Auto) 1.005 12/10/22 10:05 Urine Protein (Auto) 0 mg/dL 12/10/22 10:05 Glucose (UA)(Auto) 0 mg/dL 12/10/22 10:05 Urine Ketones (Auto) Negative 12/10/22 10:05 Urine Blood (Auto) 25 Og/uL 12/10/22 10:05 Urine Nitrite (Auto) Negative 12/10/22 10:05 Urine Bilirubin (Auto) 0 mg/dL 12/10/22 10:05 Urine Urobilinogen (Auto) 0.2 mg/dL 12/10/22 10:05 Leukocyte Esterase (Auto) 500 Shagufta/uL 12/10/22 10:05 Date of Service: 11/24/22 EXAMINATION: US RETROPERITONEAL COMPLETE (RENAL) FINDINGS: RIGHT KIDNEY: 11.2 x 4.1 x 6.6 cm (SAG x AP x TRV). The kidney is normal in size, contour, and echogenicity. Renal cortical thickness is normal. No focal parenchymal lesions or hydronephrosis. 3 mm nonobstructing calculus in the lower pole. LEFT KIDNEY: 11.1 x 4.8 x 6.1 cm (SAG x AP x TRV). The kidney is normal in size, contour, and echogenicity. Renal cortical thickness is normal. No hydronephrosis. 4 mm nonobstructing calculus in the lower pole. 3 mm nonobstructing calculus in the mid kidney. 1.5 cm simple cyst in the mid upper kidney. No follow-up imaging is recommended. BLADDER: Well distended and normal. Bilateral ureteral jets are demonstrated. Prevoid bladder volume is 205 mL. Postvoid bladder volume is 23.4 mL. IMPRESSION: Bilateral nonobstructing renal calculi. No hydronephrosis. Assessment & Plan Assessment & Plan (1) Recurrent UTI: Code(s): N39.0 - Urinary tract infection, site not specified (2) Microscopic hematuria: Code(s): R31.29 - Other microscopic hematuria (3) Nephrolithiasis: Code(s): N20.0 - Calculus of kidney Plan In office urinalysis results reviewed with the patient today; as noted above. Patient denies any bothersome urinary issues or concerns at this time. Patient denies any UTI like symptoms Recent retroperitoneal ultrasound results reviewed with the patient today; as noted above. Discussed, stress, and encouraged on the importance of drinking plenty of water daily. Discussed adding 1 oz of lemon juice to water daily. Continue Estrace cream as discussed and prescribed. Stop Low-dose macrobid Start vitamin B6 as discussed and prescribed. Discussed UTI prevention with D mannose supplement, vitamin-C, increasing fluid intake, behavioral therapy with timed voiding, perineal hygiene and postcoital voiding, and management of constipation with stool softeners and increased fiber intake. Orders: Orders AMB Urinalysis Automated 12/10/22 Z13.9 - Encounter for screening, unspecified AMB Post Void Residual by ultrasound 12/10/22 N39.0 - Urinary tract infection, site not specified Medications: New pyridoxine (vitamin B6) 100 mg PO DAILY 90 tabs 1RF 90 days N20.0 - Calculus of kidney Discontinued nitrofurantoin macrocrystal to start once treatment of UTI is completed Discontinued Reason: Doctor's Order 50 mg PO BEDTIME 90 days 90 caps 2RF N39.0 - Urinary tract infection, site not specified Patient Instructions: The patient had an opportunity to ask questions regarding the treatment plan. All questions were answered. Physical exam, labs, and imaging were discussed and reviewed in detail. As well as risks, benefits, and discussion of treatment choices. No major barriers to understanding were identified. The patient expressed understanding and agreement with the above treatment plan. The patient was made aware they should contact our office by phone for worsening of their current condition, the appearance of new symptoms, or with any questions or concerns. Compliance is encouraged with any medications and follow up testing that is ordered. It is a privilege to be allowed the opportunity to participate in? your urological care.? Again, if you have any questions or concerns If you have any questions or concerns please do not hesitate to contact me. The office is [phone]. This note is constructed using voice recognition software. While every effort has been made to ensure accuracy residence hall director errors may have been included. Yours sincerely, CEZAR Eaton Coding Level of Care Code Est Pt Level 4 (43199) Diagnoses Recurrent UTI N39.0 Microscopic hematuria R31.29 Nephrolithiasis N20.0 CPT Codes Post Residual Void - PVR CPT Code: 26409-Epwq Void Residual by ultrasound ([id number])
== END 2022-12-10 10:44 | disposition home or self-care (01) ==
PROVIDERS: PCP Internal Medicine; Visit Provider Nurse Practitioner Family
DX: N39.0 Urinary tract infection, site not specified (principal); R31.29 Other microscopic hematuria; N20.0 Calculus of kidney
CPT/HCPCS: 99214

== ENCOUNTER → 2022-12-10 09:56 | Outpatient (BNVA) | payer OTHER, SELFPAY | PROVIDERS: Visit Provider Nurse Practitioner Family | DX: R31.29 Other microscopic hematuria (principal); N39.0 Urinary tract infection, site not specified; N20.0 Calculus of kidney | CPT/HCPCS: 51798; 81003 ==

== ENCOUNTER 2022-12-19 09:18 | Outpatient (REF) | payer OTHER, SELFPAY | END 2022-12-19 09:19 | disposition home or self-care (01) | LOC: HO.MAMMO 09:18 | PROVIDERS: PCP Nurse Practitioner Family; Visit Provider Nurse Practitioner Family | DX: Z12.31 Encounter for screening mammogram for malignant neoplasm of breast (principal) | CPT/HCPCS: 77063; 77067 ==

== ENCOUNTER → 2022-12-19 09:45 | Outpatient (BNV) | payer OTHER, SELFPAY | PROVIDERS: PCP Nurse Practitioner Family; Visit Provider Radiology Diagnostic Radiology | DX: Z12.31 Encounter for screening mammogram for malignant neoplasm of breast (principal) | CPT/HCPCS: 77063; 77067 ==

== ENCOUNTER 2023-01-27 09:32 | Emergency (ER) | payer OTHER, SELFPAY ==
--- NOTE | ~2023-01-27 | XR_ITS ---
EXAMINATION: XR CHEST CLINICAL INFORMATION: Cough, wheezing COMPARISON: October 2020. TECHNIQUE: PA and lateral views of the chest. FINDINGS: No airspace consolidation or vascular congestion seen. The hilar regions are unremarkable. Mild emphysematous changes observed. Pleural surfaces appear to be clear. No thoracic compression fractures. Cervical spine postoperative changes seen. XR/XR chest 2V IMPRESSION: No evidence for acute process.
--- NOTE | 2023-01-27 09:34 | ECG_ITS ---
Test Reason : CP Blood Pressure : / mmHG Vent. Rate : 085 BPM Atrial Rate : 085 BPM P-R Int : 180 ms QRS Dur : 100 ms QT Int : 378 ms P-R-T Axes : 081 058 056 degrees QTc Int : 449 ms Normal sinus rhythm Possible Left atrial enlargement Incomplete right bundle branch block Abnormal ECG When compared with ECG of 23-APR-2008 10:10, No significant change was found Referred By: Generic ED Physician Electronically Signed By:ALEXIS GONG MD
[2023-01-27 09:46] VITALS: BP 127/69; PULSE 84; RESP 18; TEMP 36.6; O2SAT 96; BMI 25.6
--- NOTE | 2023-01-27 11:38 | ED_ITS ---
HPI - General Adult General Chief complaint: Upper Respiratory Symptoms Stated complaint: Chest pain Time Seen by Provider: 01/27/23 11:38 Source: patient Mode of arrival: ambulatory Limitations: no limitations History of Present Illness HPI narrative: Patient is a 62 year old assigned female at with a history of nephrolithiasis presenting to the emergency department today with left sided chest wall pain with breathing and coughing. Patient states that over the last week she has had a cough and some wheezing. Patient states that she ran out of her inhaler. Patient states that the left sided chest pain is only present when taking deep breaths. Patient denies any dizziness, lightheadedness, abdominal pain, nausea, vomiting, fever, chills, blurry vision, double vision, loss of vision, difficulty breathing, shortness of breath, back pain, night sweats, pain with urination, increased urinary frequency, increased urinary urgency, blood in her urine or stool, syncope or a near syncopal episode, recent trauma or falls, bowel incontinence, bladder incontinence, bowel retention, bladder retention, or any other complaints at this time. Onset (ago): week(s) (1) Location: chest and left Radiation: non-radiation Severity: mild Severity scale (1-10): 3 Quality: aching Pain Consistency: intermittent Relieving factors: none Exacerbating factors: other (deep breaths) Associated symptoms: cough Treatments prior to arrival: none Related Data Home Medications Medication Instructions Recorded Confirmed atorvastatin 40 mg tablet 40 mg PO DAILY 06/11/20 10/26/22 clonazepam 1 mg tablet 1 mg PO BID PRN 06/11/20 10/26/22 sertraline 100 mg tablet 100 mg PO DAILY 06/11/20 10/26/22 bupropion HCl 150 mg 24 hr tablet, 150 mg PO QAM 12/03/21 10/26/22 extended release ezetimibe 10 mg tablet 10 mg PO DAILY 12/03/21 10/26/22 estradiol 0.01% (0.1 mg/gram) 1 g vaginal 3XW 03/09/22 10/26/22 vaginal cream (Estrace) albuterol sulfate 90 mcg/actuation inhalation 07/14/22 10/26/22 aerosol inhaler Previous Rx's Medication Instructions Recorded ibuprofen 600 mg tablet 600 mg PO TID PRN fever or pain 10/30/21 #20 tabs pyridoxine (vitamin B6) 100 mg 100 mg PO DAILY 90 days #90 tabs 12/10/22 tablet albuterol sulfate 90 mcg/actuation 1 inh inhalation QID #8.5 grams 01/27/23 aerosol inhaler doxycycline hyclate 100 mg tablet 100 mg PO BID 7 days #14 tabs 01/27/23 naproxen 500 mg tablet 500 mg PO BID 7 days #14 tabs 01/27/23 prednisone 20 mg tablet 20 mg PO DAILY 7 days #7 tabs 01/27/23 Allergies Allergy/AdvReac Type Severity Reaction Status Date / Time No Known Allergies Allergy Verified 01/27/23 09:46 Review of Systems Constitutional: Constitutional: Reports no additional constitutional complaints, Denies chills, Denies fever(s) and Denies night sweats Eyes: Eyes: Reports no additional eye complaints, Denies blurry vision, Denies change in vision, Denies diplopia, Denies eye discharge, Denies loss of vision and Denies eye pain ENT: Denies dizziness Cardiovascular: Cardiovascular: Reports no additional cardiovascular complaints, Reports chest pain (left sided), Denies lightheadedness, Denies Loss of Consciousness and Denies dyspnea Respiratory: Respiratory: Reports no additional respiratory complaints, Reports cough, Denies dyspnea and Reports wheezing Gastrointestinal: Gastrointestinal: Reports no additional gastrointestinal complaints, Denies abdominal pain, Denies melena, Denies hematochezia, Denies change in bowel habits and Denies change in stool character Genitourinary: Genitourinary: Denies hematuria, Denies urinary frequency, Denies dysuria, Denies urinary incontinence, Denies urinary hesitancy and Denies urinary urgency Musculoskeletal: Musculoskeletal: Reports no additional musculoskeletal complaints, Denies numbness and Denies tingling Neurologic: Denies dizziness, Denies loss of vision, Denies numbness and Denies tingling Psychiatric: Psychiatric: Reports no additional psychiatric complaints Endocrine: Endocrine: Reports no additional endocrine complaints Hematologic/Lymphatic: Hematologic/Lymphatic: Reports no additional hematologic/lymphatic complaints Allergic/Immunologic: Allergic/Immunologic: Reports no additional allergic/immunologic complaints and Reports wheezing PMFSH Past Medical History Attestation statement: The following information was validated with the patient. Source: old records reviewed and nursing notes reviewed Medical History Neck pain with history of cervical spinal surgery Weak urinary stream Chest wall contusion Numbness and tingling in left hand Carpal tunnel syndrome of right wrist Numbness and tingling in right hand Microscopic hematuria Recurrent UTI Osteoporosis Renal and ureteric calculus UTI (urinary tract infection) Hematuria Hyperplastic colon polyp History of adenomatous polyp of colon History of colonic diverticulitis High cholesterol Jammie-Danlos disease Anxiety Surgical History H/O Spinal surgery History of surgery History of mandibular surgery History of appendectomy Family History Family History Sister Uterine cancer Father Pancreatic cancer Social History Social History Alcohol intake: never Smoked in Last 30 Days: Yes Use of substances other than those prescribed or required for medical reasons: No Advance Directives: No Advance Directives Information Provided: Yes Patient : No Current occupational status: employed Current occupation: right handed/ IV NURSE Gender identity: Female Physical Exam ED Vital Signs: Vital Signs - 24 hr 01/27/23 09:46 01/27/23 11:52 01/27/23 11:52 Temperature 98 F 98.4 F Pulse Rate 84 70 Respiratory Rate 18 18 Blood Pressure 127/69 131/66 Pulse Oximetry 96 95 95 Oxygen Delivery Method Room Air Room Air Room Air BMI result Body Mass Index 25.6 Const General: cooperative, no acute distress, alert and awake Nutritional Appearance: well nourished Orientation/consciousness: patient oriented x3 Limitations: no limitations [facility]: Yes normal to inspection and Yes atraumatic Ears: hearing grossly normal bilaterally and external ears normal General nose exam: Normal external nose present, no nasal discharge noted and no epistaxis Face and sinus: Yes normal facial exam, No abrasion and No laceration Mouth: Normal oral and palatal mucosa present, no drooling and no muffled voice Eyes General: appearance normal, both eyes and all related structures Periorbital: periorbital findings normal Eyelids: Yes eyelids normal Conjunctivae: conjunctivae normal Pupils: Equal, round and reactive pupils present EOM: EOMs intact bilaterally Neck Neck: Yes normal visual inspection, Yes full ROM and Yes no lymphadenopathy Chest Chest palpation & inspection: normal inspection of the chest Resp Effort & Inspection: normal respiratory effort and able to speak in complete sentences Auscultation: clear to auscultation bilaterally Cardio Rate: regular rate Rhythm: regular rhythm GI Inspection: Yes normal to inspection Neuro General: patient oriented x3 and moves all extremities Cranial nerves: Yes Equal, round and reactive pupils present Cognition (Neuro): normal cognition Motor exam (neuro): 5/5 motor strength present throughout Sensory Exam: Normal double simultaneous stimulation for sensation Coordination: [id number] test normal Extrem General: Yes normal to inspection, Yes full ROM and Yes capillary refill normal Psych Appearance: grossly normal Mental Status: mental status grossly normal Affect: normal affect Attitude: cooperative Thought process: Normal thought process present Thought content: Normal thought content present Insight: Good insight present (Psych) Medications Administered Discontinued Medications Generic Name Dose Route Start Last Admin Trade Name Antonina PRN Reason Stop Dose Admin Ketorolac Tromethamine 15 mg 01/27/23 11:39 01/27/23 11:50 Ketorolac Tromethamine 15 Mg/Ml Vial IM 01/27/23 11:40 15 mg ONCE ONE Administration Methylprednisolone Sodium Succinate 60 mg 01/27/23 11:39 01/27/23 11:50 Methylprednisolone Sod Succ 125 Mg/2 Ml Vial IM 01/27/23 11:40 60 mg ONCE ONE Administration Medical Decision Making Medical Decision Making [facility] Narrative: Patient is a 62 year old assigned female at with a history of nephrolithiasis presenting to the emergency department today with left sided ch est wall pain on inspiration and a cough. Patient's physical exam was unremarkable. Patient's chest x-ray showed no acute process. Patient's EKG showed no acute process. Patient's COVID/RSV/Influenza swabs were negative. I explained my physical exam findings as well as all test results to the patient. I answered all questions asked by the patient. Patient received Toradol and solu-medrol which she stated helped her symptoms significantly. I stressed the importance of the patient taking her medication as prescribed. I stressed the importance of the patient following up with her primary care provider. I stressed the importance of the patient returning to the emergency department immediately if her symptoms were to worsen or if she were to develop any dizziness, shortness of breath, difficulty breathing, chest pain, blurry vision, loss of vision, nausea, vomiting, abdominal pain, fever, chills, back pain, or any other complaints. Patient verbalized agreement and understanding with this treatment plan and discharge. Differential Diagnosis Differential Diagnoses: The differential diagnosis associated with the presentation includes Bronchitis Viral illness COVID-19 Influenza RSV PNA Costochondritis Pleurisy Admission/Observation Consideration of admission/observation: Escalation of care including admission/observation considered Patient would have been admitted to the hospital had her work up had any findings where hospital admission was appropriate and her clinical presentation warranted hospital admission. Lab Data MDM Lab Attestation statement: I reviewed the patient's lab results. My interpretation of these studies and their corresponding values is that they are grossly normal. Labs: Lab Results 01/27/23 Range/Units 11:40 Influenza Type A (PCR) NEGATIVE (Negative) Influenza Type B (PCR) NEGATIVE (Negative) RSV RNA Qual (PCR) NEGATIVE (Negative) SARS-CoV-2 RNA (RT-PCR) NEGATIVE (Negative) Independent Interpretation I performed an independent interpretation of an: EKG and Plain X-Ray Interpretation: My interpretation is in agreement with the radiologist's impression of this imaging study. ---- EXAMINATION: XR CHEST CLINICAL INFORMATION: Cough, wheezing COMPARISON: October 2020. TECHNIQUE: PA and lateral views of the chest. FINDINGS: No airspace consolidation or vascular congestion seen. The hilar regions are unremarkable. Mild emphysematous changes observed. Pleural surfaces appear to be clear. No thoracic compression fractures. Cervical spine postoperative changes seen. XR/XR chest 2V IMPRESSION: No evidence for acute process. Dictated By: Randall Marcus Signed By: Electronically signed by Randall Marcus 01/27/23 1138 Vent. Rate: 085 BPM Atrial Rate: 085 BPM P-R Int: 180 ms QRS Dur: 100 ms QT Int: 378 ms P-R-T Axes: 081 058 056 degrees QTc Int: 449 ms Normal sinus rhythm Possible Left atrial enlargement Incomplete right bundle branch block Abnormal ECG When compared with ECG of 23-APR-2008 10:10, No significant change was found Electronically Signed By:ALEXIS GONG MD Dictated By: Oswald Gong MD Signed By: Electronically signed by Oswald Gong MD 01/27/23 1111 Radiology Impression Discussion of test interpretation with radiology: I have reviewed the radiologist's reading. Prescription Management I considered prescription management with: Antibiotic (patient prescribed antibiotic for bronchitis) Discharge Plan Discharge Clinical Impression: Bronchitis, Acute costochondritis Patient Disposition: Home, Self-Care Instructions: Costochondritis (ED), Acute Bronchitis (ED) Additional Instructions: Follow up with your primary care provider. Return to the emergency department immediately if your symptoms worsen or if you develop any dizziness, shortness of breath, difficulty breathing, chest pain, blurry vision, loss of vision, nausea, vomiting, abdominal pain, fever, chills, back pain, or any other complaints. Prescriptions: New prednisone 20 mg tablet 20 mg PO DAILY 7 Days Qty: 7 0RF doxycycline hyclate 100 mg tablet 100 mg PO BID 7 Days Qty: 14 0RF albuterol sulfate 90 mcg/actuation HFA aerosol inhaler 1 inh inhalation QID Qty: 8.5 0RF naproxen 500 mg tablet 500 mg PO BID 7 Days Qty: 14 0RF No Action ibuprofen 600 mg tablet 600 mg PO TID PRN (Reason: fever or pain) Qty: 20 0RF atorvastatin 40 mg tablet 40 mg PO DAILY clonazepam 1 mg tablet 1 mg PO BID PRN sertraline 100 mg tablet 100 mg PO DAILY estradiol [Estrace] 0.01 % (0.1 mg/gram) cream 1 g vaginal 3XW ezetimibe 10 mg tablet 10 mg PO DAILY bupropion HCl 150 mg tablet extended release 24 hr 150 mg PO QAM pyridoxine (vitamin B6) 100 mg tablet 100 mg PO DAILY 90 Days Qty: 90 1RF albuterol sulfate 90 mcg/actuation HFA aerosol inhaler inhalation Referrals: Mercedes Zapata NP [Primary Care Provider] - Interventions: ED Discharge Assessment Last Done: 01/27/23 13:15 Discharge Date/Time: 01/27/23 13:16 Print Language: [place]
[2023-01-27] MEDS: methylPREDNISolone Sod Succ 125 MG/2 ML VIAL 60 MG IM (11:50)
[2023-01-27] MEDS: Ketorolac Tromethamine 15 MG/ML VIAL IM (11:50)
[2023-01-27 11:52] VITALS: BP 131/66; PULSE 69; PULSE 70; RESP 18; TEMP 36.9; O2SAT 95
[2023-01-27 12:30] LABS: Influenza A PCR NEGATIVE (Negative); Influenza B PCR NEGATIVE (Negative); Resp Syncy Virus RNA Qual PCR NEGATIVE (Negative); SARS COV2 PCR INHOUSE NEGATIVE (Negative)
== END 2023-01-27 13:16 | disposition home or self-care (01) ==
PROVIDERS: Emergency Provider Emergency Medicine; PCP Nurse Practitioner Family
DX: J40 Bronchitis, not specified as acute or chronic (principal); M94.0 Chondrocostal junction syndrome [Tietze]; R07.89 Other chest pain; R05.9 Cough, unspecified; Z20.822 Contact with and (suspected) exposure to COVID-19; Z20.828 Contact with and (suspected) exposure to other viral communicable diseases
CPT/HCPCS: 0241U; 71046; 93005; 96372; 99284; 99285; J1885; J2930

== ENCOUNTER 2023-03-05 10:51 | Outpatient (REF) | payer OTHER, SELFPAY | END 2023-03-05 10:52 | disposition home or self-care (01) | LOC: HO.HMGCLDS 10:51 | PROVIDERS: PCP Nurse Practitioner Family; Visit Provider Nurse Practitioner Family | DX: N39.0 Urinary tract infection, site not specified (principal) | CPT/HCPCS: 87086 ==

== ENCOUNTER 2023-06-09 10:37 | Outpatient (REF) | payer OTHER, SELFPAY | END 2023-06-09 10:38 | disposition home or self-care (01) | LOC: HO.LNP 10:37 | PROVIDERS: PCP Internal Medicine; Visit Provider Nurse Practitioner Family | DX: N39.0 Urinary tract infection, site not specified (principal); R31.29 Other microscopic hematuria; N95.8 Other specified menopausal and perimenopausal disorders | CPT/HCPCS: 51798; 81003; 87086 ==

== ENCOUNTER 2023-06-09 10:37 | Outpatient (AMB) | payer OTHER, SELFPAY ==
--- NOTE | 2023-06-09 10:45 | A.OFFVIS_ITS ---
Intake Intake Visit Reasons: 6m/PVR Intake Note: Patient is present for follow up nephrolithiasis, micro hematuria, recurrent uti Urology Medications: estrace cream, Vitamin B6 Blood Thinner: none PVR: 0ml's Program Project Manager Required: No Accompanied by: Self / Same As Patient Allergies No Known Allergies Allergy (Verified 06/09/23 10:49) HPI HPI Comments History of Present Illness Details Yi is a pleasant 62-year-old female patient of . She has a past medical history of microscopic hematuria, recurrent urinary tract infections, osteoporosis, renal calculi, hypercholesteremia, anxiety, and Jammie-Danlos disease. She presents to the office today for follow-up of her recurrent urinary tract infection infections, genitourinary syndrome of menopause, and microscopic hematuria. In discussion with the patient today she reports to be doing and feeling well. She denies having had any urinary tract infections and or urinary tract infection like symptoms since her last office visit here approximately 6 months ago. In review of patient's chart it appears last urinary tract infection was approximately 11 months ago. She reports compliance with Estrace cream as prescribed. She denies any bothersome urinary issues or concerns at this time. She reports be happy with current voiding parameters. In office urinalysis results reviewed with the patient today. 3+ leukocytes negative nitrates. PVR 0 mL. When asked she denies urinary urgency, urinary frequency, dysuria, hematuria, change in urinary stream, flank pain, fever, and or chills. Previous workup has included a retroperitoneal ultrasound noting right kidney with no lesions or hydronephrosis. 3 mm nonobstructing calculus in the lower pole. Left kidney with no hydronephrosis. 4 mm nonobstructing calculus in the lower pole. 3 mm nonobstructing calculus in the mid kidney. 1.5 cm simple cyst in the mid upper kidney. No follow-up imaging is recommended per radiology report. The bladder is well distended and normal. Pre void bladder volume is approximately 200 mL. Postvoid bladder volume is approximately 25 mL. When asked she reports to not be drinking plenty of water daily. She otherwise denies any other issues or concerns at this time. [facility] Medical History Neck pain with history of cervical spinal surgery Weak urinary stream Chest wall contusion Numbness and tingling in left hand Carpal tunnel syndrome of right wrist Numbness and tingling in right hand Microscopic hematuria Recurrent UTI Osteoporosis Renal and ureteric calculus UTI (urinary tract infection) Hematuria Hyperplastic colon polyp History of adenomatous polyp of colon History of colonic diverticulitis High cholesterol Jammie-Danlos disease Anxiety Surgical History H/O Spinal surgery History of surgery History of mandibular surgery History of appendectomy Family History Sister Uterine cancer Father Pancreatic cancer Social History Alcohol intake: never Current occupational status: employed Current occupation: right handed/ IV NURSE Gender identity: Female Review of Systems Const Reports no additional complaints Eyes Reports no additional complaints ENT Reports no additional complaints Card Reports no additional complaints Resp Reports no additional complaints GI Reports no additional complaints Reports as per HPI Musc Reports no additional complaints Neuro Reports no additional complaints Psych Reports no additional complaints Endo Reports no additional complaints Physical Exam Const General: cooperative, healthy appearing, comfortable, no acute distress, well developed, alert and awake Orientation/consciousness: patient oriented x3 Limitations: no limitations HEENT Head: Yes normal to inspection, Yes normocephalic and Yes atraumatic Ears: hearing grossly normal bilaterally Eyes General: appearance normal, both eyes and all related structures Neck Neck: Yes normal visual inspection and Yes trachea midline Chest Chest palpation & inspection: normal inspection of the chest Resp Effort & Inspection: normal respiratory effort and able to speak in complete sentences Cardio Rate: regular rate GI Inspection: Yes normal to inspection General: Yes no CVA tenderness Back/Spine/Pelvis Back: no CVA tenderness Skin General skin exam: no rashes or lesions noted Neuro General: patient oriented x3 Extrem General: Yes normal to inspection Psych Appearance: grossly normal and well kempt Mental Status: mental status grossly normal Speech and movement: Normal speech and movement present and Clear speech present Affect: normal affect Attitude: cooperative Thought process: Normal thought process present Thought content: Normal thought content present Insight: Good insight present (Psych) Judgement: Good judgement present (Psych) Office Procedures Post Void Residual Post Residual Void Post Void Residual (PVR): 0 [id number] Void Residual by ultrasound Results AMB Urinalysis, Automated UA Leukoctes 500 Shagufta/uL Last Edit by Emerson Nichols on 06/09/23 11:03 UA Nitrite Negative Last Edit by Emerson Nichols on 06/09/23 11:03 UA Urobilinogen 0.2 mg/dL Last Edit by Emerson Nichols on 06/09/23 11:03 UA Protein 15 mg/dL Last Edit by Emerson Nichols on 06/09/23 11:03 UA pH 6.5 Last Edit by Emerson Nichols on 06/09/23 11:03 UA Blood 80 Og/uL Last Edit by Emerson Nichols on 06/09/23 11:03 UA Specific Laurel 1.015 Last Edit by Emerson Nichols on 06/09/23 11:03 UA Ketone Negative Last Edit by Emerson Nichols on 06/09/23 11:03 UA Bilirubin 0 mg/dL Last Edit by Emerson Nichols on 06/09/23 11:03 UA Glucose 0 mg/dL Last Edit by Emerson Nichols on 06/09/23 11:03 Results Reviewed Results Reviewed: Laboratory Last Values Urine pH (Auto) 6.5 06/09/23 10:51 Specific Laurel (Auto) 1.015 06/09/23 10:51 Urine Protein (Auto) 15 mg/dL 06/09/23 10:51 Glucose (UA)(Auto) 0 mg/dL 06/09/23 10:51 Urine Ketones (Auto) Negative 06/09/23 10:51 Urine Blood (Auto) 80 Og/uL 06/09/23 10:51 Urine Nitrite (Auto) Negative 06/09/23 10:51 Urine Bilirubin (Auto) 0 mg/dL 06/09/23 10:51 Urine Urobilinogen (Auto) 0.2 mg/dL 06/09/23 10:51 Leukocyte Esterase (Auto) 500 Shagufta/uL 06/09/23 10:51 Assessment & Plan Assessment & Plan (1) Recurrent UTI: Code(s): N39.0 - Urinary tract infection, site not specified (2) Microscopic hematuria: Code(s): R31.29 - Other microscopic hematuria (3) Genitourinary syndrome of menopause: Code(s): N95.8 - Other specified menopausal and perimenopausal disorders (4) UTI (urinary tract infection): Code(s): N39.0 - Urinary tract infection, site not specified Plan In office urinalysis results reviewed with the patient today; as noted above; will send for urine culture; will await results for possible treatment. Patient currently denies any bothersome urinary issues or concerns. Continue Estrace cream as prescribed; refill provided. Patient reports be happy with current voiding parameters. Discussed UTI prevention with D mannose supplement, vitamin-C, increasing fluid intake, behavioral therapy with timed voiding, perineal hygiene and postcoital voiding, and management of constipation with stool softeners and increased fiber intake. Follow-up in 6 months with PVR; or sooner with any issues, concerns, and or questions. Orders: Orders AMB Urinalysis Automated Today Z13.9 - Encounter for screening, unspecified AMB Post Void Residual by ultrasound Today N39.0 - Urinary tract infection, site not specified Urine Culture Today N39.0 - Urinary tract infection, site not specified Medications: Changed From estradiol 0.01%(0.1mg/gram) (Estrace) 1 g vaginal 3XW To estradiol 0.01%(0.1mg/gram) (Estrace) 1 g vaginal 3XW 42.5 grams 3RF 90 days Patient Instructions: The patient had an opportunity to ask questions regarding the treatment plan. All questions were answered. Physical exam, labs, and imaging were discussed and reviewed in detail. As well as risks, benefits, and discussion of treatment choices. No major barriers to understanding were identified. The patient expressed understanding and agreement with the above treatment plan. The patient was made aware they should contact our office by phone for worsening of their current condition, the appearance of new symptoms, or with any questions or concerns. Compliance is encouraged with any medications and follow up testing that is ordered. It is a privilege to be allowed the opportunity to participate in? your urological care.? Again, if you have any questions or concerns If you have any questions or concerns please do not hesitate to contact me. The office is [phone]. This note is constructed using voice recognition software. While every effort has been made to ensure accuracy casting cleaner errors may have been included. Yours sincerely, CEZAR Eaton Coding Level of Care Code Est Pt Level 3 (96570) Diagnoses Recurrent UTI N39.0 Microscopic hematuria R31.29 Genitourinary syndrome of menopause N95.8 UTI (urinary tract infection) N39.0 CPT Codes Post Residual Void - PVR CPT Code: 21846-[id number] Void Residual by ultrasound ([id number])
== END 2023-06-09 11:11 | disposition home or self-care (01) ==
PROVIDERS: PCP Internal Medicine; Visit Provider Nurse Practitioner Family
DX: N39.0 Urinary tract infection, site not specified (principal); R31.29 Other microscopic hematuria; N95.8 Other specified menopausal and perimenopausal disorders; Z13.9 Encounter for screening, unspecified
CPT/HCPCS: 99213

== ENCOUNTER 2024-01-15 08:59 | Outpatient (REF) | payer OTHER, SELFPAY ==
--- NOTE | ~2024-01-15 | MM_ITS ---
EXAMINATION: MM SCREENING DIGITAL BREAST TOMOSYNTHESIS, BILATERAL CLINICAL INFORMATION: Screening. Asymptomatic. COMPARISON: Mammography: Comparison is made with available priors TECHNIQUE: Digital breast mammography with tomosynthesis is performed in both the craniocaudal and mediolateral oblique views along with computer-aided detection (CAD). FINDINGS: The breasts are extremely dense, which lowers the sensitivity of mammography (ACR BI-RADS breast composition Category d). There are no significant masses, abnormal calcifications, or other abnormalities. MM/MM tomosynthesis screening BI IMPRESSION: No mammographic evidence of malignancy. ASSESSMENT: BI-RADS BI-RADS 1 - Negative RECOMMENDATION: Routine annual mammography screening. 1 year F/U This examination should not preclude the clinical evaluation of a suspicious palpable abnormality. This patient's information was entered into a reminder system with a target due date for their next mammogram. Electronically signed by: Sona Forrester DO 01/25/2024 11:06 AM JEFFERY
== END 2024-01-15 09:00 | disposition home or self-care (01) ==
LOC: HO.MAMMO 08:59
PROVIDERS: PCP Nurse Practitioner Family; Visit Provider Internal Medicine
DX: Z12.31 Encounter for screening mammogram for malignant neoplasm of breast (principal)
CPT/HCPCS: 77063; 77067

== ENCOUNTER → 2024-01-15 09:00 | Outpatient (BNV) | payer OTHER, SELFPAY | PROVIDERS: PCP Nurse Practitioner Family; Visit Provider Internal Medicine | DX: Z12.31 Encounter for screening mammogram for malignant neoplasm of breast (principal) | CPT/HCPCS: 77063; 77067 ==

== ENCOUNTER 2024-02-29 08:37 | Outpatient (AMB) | payer OTHER, SELFPAY ==
--- OUTSIDE RECORDS SUMMARY | 2024-02-29 08:39 | XMS_ITS | Continuity of Care Document ---
Author Organization [facility] [address] [place], [address] [place] [address]- Care Team Providers Care Demolition Expert Name Role Phone Benny MUSEUM CURATOR, Mercedes Trinidad Primary Care Physician [facility] Date[facility]): 01/[facility]24 - 02/05/[address] [place], [place] [address] Encounter Type: Triage Allergies, Adverse Reactions, Alerts No Known Allergies Immunizations Given and Recorded Vaccine Date Status Refusal Reason influenza virus vaccine, inactivated 12/02/23 Wyatt rded influenza virus vaccine, inactivated 1 01/14/23 Gi kristine influenza virus vaccine, inactivated 2 12/26/21 Gi kristine influenza virus vaccine, inactivated 01/14/21 Give n influenza virus vaccine, inactivated 12/22/19 Wyatt rded influenza virus vaccine, inactivated 3 11/26/15 Re corded influenza virus vaccine, inactivated 4 11/13/14 Re corded influenza virus vaccine, inactivated 10/31/13 Wyatt rded influenza virus vaccine, inactivated 02/09/13 Give n influenza virus vaccine, inactivated 5 11/20/10 Gi kristine pneumococcal 20-valent conjugate vaccine 6 07/07/22 Given tetanus-diphtheria toxoids (Td) 7 12/26/21 Given SARS-CoV-2 (COVID-19) mRNA-1273 vaccine 03/25/20 R ecorded SARS-CoV-2 (COVID-19) mRNA-1273 vaccine 02/26/20 R ecorded Influenza Virus Vaccine (oldterm) 10/31/19 Recorde d Influenza Virus Vaccine (oldterm) 8 01/15/09 Given pneumococcal 23-valent vaccine 07/22/12 Given FluLaval (oldterm) 9 12/13/11 Given FluLaval (oldterm) 10 05/26/10 Given tetanus/diphtheria/pertussis, acel(Tdap) 06/01/11 Given Influenza Inactive (IM) (oldterm) 11 01/27/07 Give n Tetanus Toxoid Vaccine (oldterm) 03/01/01 Given 1Result Comment: [id number] Checklist completed 2Result Comment: [facility]-[id number] left upper deltoid 3Result Comment: [02/25/2016] work 4Result Comment: [12/04/2014] [facility] 5Admin Note: work 6Result Comment: [id number] 7Result Comment: [facility]-[id number] left lower deltoid 8Admin Note: rcvd at work per pt 9Admin Note: given at work 10Admin Note: rcvd at work 11Admin Note: rcvd at work Medications atorvastatin 40 mg oral tablet 1 tablet, By Mouth, Daily, # 90 tablet, 1 Refills, Maintenance, 09/17/23 12:53:00 PM EDT, [facility], 157.4, cm, 07/29/23 8:47:00 EDT, Height Start Date: 09/17/23 Status: Ordered Quantity: 90.0 Unit: tablet Repeat number: 1 clonazePAM 1 mg oral tablet 1 tablet = 1 mg, By Mouth, 2 times a day, PRN Anxiety, [id number], # 60 tablet, 0 Refills, Maintenance, 10/06/17 11:21:54 AM EDT Start Date: 10/06/17 Stop Date: 11/05/17 Status: Ordered Quantity: 60.0 Unit: tablet Repeat number: 1 Estrace Vaginal = 1 Gm, Vaginally, Daily at bedtime, 0 Refills, Maintenance, 03/17/22 9:28:00 PM EST, Partial fill upon patient request if the prescription is for a schedule II opioid drug. Start Date: 03/17/22 Status: Ordered Repeat number: 1 ezetimibe 10 mg oral tablet 1 tablet, By Mouth, Daily, # 90 tablet, 1 Refills, Maintenance, 08/19/23 10:01:00 AM EDT, [facility]/pharmacy #[id number], 157.4, cm, 07/29/23 8:47:00 EDT, Height Start Date: 08/19/23 Status: Ordered Quantity: 90.0 Unit: tablet Repeat number: 2 gabapentin 100 mg oral capsule 100 mg, 1, capsule, By Mouth, 3 times a day, # 90 capsule, Refills 0, Tot. Refills 0, Maintenance, 01/19/24 3:19:00 PM EST, Route to Pharmacy Electronically, [id number], Partial fillupon patient request if the prescription is for a schedule II opioid drug., 157.4, cm, 01/19/24 14:42:00 EST, Height, 63.5, kg, 01/19/24 8:47:00 EST, Dry Weight Start Date: 01/19/24 Stop Date: 02/18/24 Status: Ordered Quantity: 90.0 Unit: capsule Repeat number: 1 Meloxicam = 15 mg, By Mouth, Daily, 0 Refills, Maintenance, 01/19/24 8:52:00 AM EST, Partial fill upon patient request if the prescription is for a schedule II opioid drug. Start Date: 01/19/24 Status: Ordered Repeat number: 1 Prolia 60 mg/mL subcutaneous solution 1 mL = 60 mg, Subcutaneous Injection, Every 6 months, # 1 mL, 1 Refills, Maintenance, 07/29/23 9:02:00 AM EDT, Solution, [facility]/pharmacy #[id number], DX- osteoporosis, 157.4, cm, 07/29/23 8:47:00 EDT, Height Start Date: 07/29/23 Status: Ordered Quantity: 1.0 Unit: mL Repeat number: 2 sertraline 100 mg oral tablet 2 tablet = 200 mg, By Mouth, Daily, am, 0 Refills, Maintenance, 10/11/19 3:43:00 PM EDT Start Date: 10/11/19 Status: Ordered Repeat number: 1 Ventolin HFA 108 mcg/inh inhalation aerosol with adapter 2 puffs, Inhalation, 4 times a day, PRN for wheezing, # 8 Gm, 0 Refills, Maintenance, 08/07/22 2:06:00 PM EDT, Aerosol, [id number], Partial fill upon patient request if the prescription is for a schedule II opioid drug., 157.4, cm, 07/07/22 9:46:00 EDT, Height, 58.8, kg, 02/03/21 11:27:00 EST, Dry Weight Start Date: 08/07/22 Status: Ordered Quantity: 8.0 Unit: g Repeat number: 1 Vitamin D3 2000 intl units oral tablet 1 tablet = 50 mcg, By Mouth, Daily, 0 Refills, Maintenance, 08/17/23 1:38:00 PM EDT, Partial fill upon patient request if the prescription is for a schedule II opioid drug. Start Date: 08/17/23 Status: Ordered Repeat number: 1 Wellbutrin SR 150 mg/12 hours oral tablet, extended release 1 tablet = 150 mg, By Mouth, Daily, 0 Refills, Maintenance, 12/11/21 3:37:00 PM EDT, Partial fill upon patient request if the prescription is for a schedule II opioid drug. Start Date: 12/11/21 Status: Ordered Repeat number: 1 Problem List Condition Confirmation Course Effective Dates Status H ealth Status Informant Adenomatous polyp of colon/colonoscopy 1 Confirmed Active Atherosclerosis of aorta ultrasound 2019 Confirmed 10/11/19 Active Carpal tunnel syndrome, right Confirmed Active Cigarette smoker 2 Confirmed Active Compression fracture of L5 vertebra incidental 2020 Confirmed 08/27/20 Active Diverticulosis sigmoid colosncp Confirmed Active Familial hyperlipidemia Confirmed Active Fibromyalgia, primary 3 Confirmed Active Unspecified fracture of sternum, referred thoracic sx 2021 Confirmed Active Generalized anxiety disorder Confirmed Active H/O atrial fibrillation (single episode during acute illness 07/2020) Confirmed Active History of acute bronchitis with bronchospasm Confirmed Active History of basal cell carcinoma (BCC) scalp 2021 Confirmed Active 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 4, 5 Confirmed Active S/P cervical discectomy 6 Confirmed 02/03/21 Active H/O syncope vasovagal Confirmed Active HLA B27 positive 7, 8 Confirmed Active Hypermobility syndrome Confirmed Active Impaired fasting blood sugar 9 Confirmed Active Lumbar spondylosis Confirmed Active Microscopic Hematuria 10, 11 Confirmed Active Nephrolithiasis 12 Confirmed Active Multinodular goiter (nontoxic)/endocrinol ogy Confirmed Active Osteoporosis Confirmed 09/17/20 Active PTSD (post-traumatic stress disorder) BH Confirmed Active Recurrent UTI Confirmed Active Persistent moderate somatic symptom disorder with predominant pain Confirmed Active Vitamin D deficiency Confirmed 09/04/20 Active 1tubular adenoma 2counsel way 2quit 3no inteventiuonal rx per pain mngt 4in situ resxected 5sqa,mous;chin 6MRI 2012 7Rheumatology addressing 8Rheumatology dressing 9advbised pre diabetic increased risk diabetes 10neg cytology/ neg CT aside stones 11neg cysto 12bilateral Social History Social History Type Response Tobacco Use: 4 or less cigar ettes(less than 1/4 pack)/day in last 30 days. Interested in cessation: Yes. Other: 1 PPD x 20 years then reduced to 0.5 PPD now down to 0.25 PPD. Type: Cigarettes. Started at age: 17 Years. Sex Female Sex Representation Female (finding) Patient Care team information Care Team Personnel Name: Mercedes Zapata NP Position: [facility] PCO Associate Professional Member Role: PCP Address: [address] [place] [phone]- Telecom: Care Team Related Persons Name: YNES RUSSO Insurance Providers Guarantor name: NATHALIA MEJIA Health Plan Information #: 1 Payer: [facility] Member Number: NA Policy Number: NA Group Number: NA
--- OUTSIDE RECORDS SUMMARY | 2024-02-29 08:39 | XMS_ITS | Continuity of Care Document ---
Author Organization [facility] Placido lt Address [address] [place] [id number]- Care Team Providers Care Spray Cementer Name Role Phone Benny Mercedes MUNGUIA Primary Care Physician [phone] [facility]counter [facility]): 01/19/24 - 02/18/24 [facility] [address] [place] [address]- Encounter Type: Triage Allergies, Adverse Reactions, Alerts No Known Allergies Immunizations Given and Recorded Vaccine Date Status Refusal Reason influenza virus vaccine, inactivated 12/02/23 Wyatt rded influenza virus vaccine, inactivated 1 01/14/23 Gi kristien influenza virus vaccine, inactivated 2 12/26/21 Gi [...] Toxoid Vaccine (oldterm) 03/01/01 Given 1Result Comment: [id number] Checklist completed 2Result Comment: [facility]-[id number] left upper deltoid 3Result Comment: [02/25/2016] work 4Result Comment: [12/04/2014] [facility] 5Admin Note: work 6Result Comment: [id number] 7Result Comment: [facility]-[id number] left lower deltoid 8Admin Note: rcvd at work per pt 9Admin Note: given at work 10Admin Note: rcvd at work 11Admin Note: rcvd at work Medications atorvastatin 40 mg oral tablet 1 tablet, By Mouth, Daily, # 90 tablet, 1 Refills, Maintenance, 09/17/23 12:53:00 PM EDT, [facility] STORE 55061, 157.4, cm, 07/29/23 8:47:00 EDT, Height Start Date: 09/17/23 Status: Ordered Quantity: 90.0 Unit: tablet Repeat number: 1 clonazePAM 1 mg oral tablet 1 tablet = 1 mg, By Mouth, 2 times a day, PRN Anxiety, [id number], # 60 tablet, 0 Refills, Maintenance, 10/06/17 [...] 1 Refills, Maintenance, 08/19/23 10:01:00 AM EDT, [facility]/pharmacy #[id number], 157.4, cm, 07/29/23 8:47:00 EDT, Height [...] Refills, Maintenance, 07/29/23 9:02:00 AM EDT, Solution, [facility]/pharmacy #[id number], DX- osteoporosis, 157.4, cm, 07/29/23 8:47:00 [...] Confirmed 09/17/20 Active PTSD (post-traumatic stress disorder) Confirmed Active Recurrent UTI Confirmed Active Persistent [...] Team Personnel Name: Mercedes Zapata NP Position: S PCO Associate Professional Member Role: PCP Address: [address] [place] [address]- Telecom: Care Team Related Persons Name: YNES RUSSO Insurance Providers Guarantor name: NATHALIA MEJIA Health Plan Information #: 1 Payer: [facility] Member Number: NA Policy Number: NA Group Number: NA
--- OUTSIDE RECORDS SUMMARY | 2024-02-29 08:39 | XMS_ITS | Continuity of Care Document ---
Author Organization [facility] Plac[facility] Address [address] [place] [id number]- Care Team Providers Care Noc Engineer Name Role Phone Benny Mercedes MUNGUIA Primary Care Physician [facility] Date[facility]s): 01/19/24 - 02/18/24 [facility] Adult [address] [place] [address]- Encounter Type: Triage Allergies, Adverse Reactions, Alerts [...] Toxoid Vaccine (oldterm) 03/01/01 Given 1Result Comment: [id number] Checklist completed 2Result Comment: [facility]-[id number] left upper deltoid 3Result Comment: [02/25/2016] work 4Result Comment: [12/04/2014] [facility] 5Admin Note: work 6Result Comment: [id number] 7Result Comment: [facility]-[id number] left lower deltoid 8Admin Note: rcvd at work per pt 9Admin Note: given at work 10Admin Note: rcvd at work 11Admin Note: rcvd at work Medications atorvastatin 40 mg oral tablet 1 tablet, By Mouth, Daily, # 90 tablet, 1 Refills, Maintenance, 09/17/23 12:53:00 PM EDT, [facility] STORE 52983, 157.4, cm, 07/29/23 8:47:00 EDT, Height Start Date: 09/17/23 Status: Ordered Quantity: 90.0 Unit: tablet Repeat number: 1 clonazePAM 1 mg oral tablet 1 tablet = 1 mg, By Mouth, 2 times a day, PRN Anxiety, [id number], # 60 tablet, 0 Refills, Maintenance, 10/06/17 [...] 1 Refills, Maintenance, 08/19/23 10:01:00 AM EDT, [facility]/pharmacy #[id number], 157.4, cm, 07/29/23 8:47:00 EDT, [...] Refills, Maintenance, 07/29/23 9:02:00 AM EDT, Solution, [facility]/pharmacy #[id number], DX- osteoporosis, 157.4, cm, 07/29/23 [...] PCO Associate Professional Member Role: PCP Address: [address] [place] [phone]- Telecom: Care Team Related Persons Name: YNES RUSSO Insurance Providers Guarantor name: NATHALIA MEJIA Health Plan Information #: 1 Payer: [facility] Member Number: NA Policy Number: NA Group Number: NA
--- OUTSIDE RECORDS SUMMARY | 2024-02-29 08:39 | XMS_ITS | Continuity of Care Document ---
Author Organization [facility] Neurosurger y Address [address] [place] [address] [address], [address] [place] [address]- Care Team Providers Care Job Cost Estimator Name Role Phone Benny TRANSPORT TANK TECHNICIAN, Mercedes Trinidad Primary Care Physician Encounter [facility] R [id number] Date(s): 02/18/24 - 02/25/[address] [place], [place] [address] Attending Physician: Jhonatan Quiros MD Encounter Type: Office Visit Allergies, Adverse Reactions, Alerts No Known Allergies [...] Toxoid Vaccine (oldterm) 03/01/01 Given 1Result Comment: [id number] Checklist completed 2Result Comment: [id number] left upper deltoid 3Result Comment: [02/25/2016] work 4Result Comment: [12/04/2014] [facility] 5Admin Note: work 6Result Comment: [id number] 7Result Comment: [facility]-[id number] left lower deltoid 8Admin Note: rcvd at work per pt 9Admin Note: given at work 10Admin Note: rcvd at work 11Admin Note: rcvd at work Medications atorvastatin 40 mg oral tablet 1 tablet, By Mouth, Daily, # 90 tablet, 1 Refills, Maintenance, 09/17/23 12:53:00 PM EDT, [facility] STORE [address]1282, 157.4, cm, 07/29/23 8:47:00 EDT, Height Start Date: 09/17/23 Status: Ordered Quantity: 90.0 Unit: tablet Repeat number: 1 clonazePAM 1 mg oral tablet 1 tablet = 1 mg, By Mouth, 2 times a day, PRN Anxiety, [id number], # 60 tablet, 0 Refills, Maintenance, 10/06/17 [...] Daily, # 90 tablet, 1 Refills, Maintenance, 02/24/24 5:33:00 PM EST, [facility], 157.4, cm, 01/19/24 14:42:00 EST, Height, 63.5, kg, 01/19/24 8:47:00 EST, Dry Weight Start Date: 02/24/24 Status: Ordered Quantity: 90.0 Unit: tablet Repeat number: 1 gabapentin 100 mg oral capsule 100 mg, [...] Refills, Maintenance, 07/29/23 9:02:00 AM EDT, Solution, [facility]/pharmacy #[id number], DX- osteoporosis, 157.4, [...] Team Personnel Name: Mercedes Zapata NP Position: [facility] PCO Associate Professional Member Role: PCP Address: [address] [place] [address]- Telecom: Care Team Related Persons Name: YNES RUSSO Insurance Providers Guarantor name: NATHALIA MEJIA Health Plan Information #: 1 Payer: [facility] Member Number: [id number] Policy Number: NA Group Number: [id number] Health Plan Information #: 2 Payer: [facility] Member Number: [id number] Policy Number: NA Group Number: [id number]
--- OUTSIDE RECORDS SUMMARY | 2024-02-29 08:39 | XMS_ITS | Continuity of Care Document ---
Author Organization [facility] Placido lt Address [address] [place] [address]- Care Team Providers Care Regulated Program Manager Name Role Phone Benny STRIP STAMP STRAIGHTENER, Mercedes Trinidad Primary Care Physician Encounter [facility] Date(s): 01/19/24 - 02/18/24 [facility] Adult [address] [place] [address]- Attending Physician: Allie Medellin Encounter Type: Triage Allergies, Adverse Reactions, Alerts [...] Toxoid Vaccine (oldterm) 03/01/01 Given 1Result Comment: [id number] Checklist completed 2Result Comment: [facility]-[id number] left upper deltoid 3Result Comment: [02/25/2016] work 4Result Comment: [12/04/2014] [facility] 5Admin Note: work 6Result Comment: [id number] 7Result Comment: [facility]-[id number] left lower deltoid 8Admin Note: rcvd at work per pt 9Admin Note: given at work 10Admin Note: rcvd at work 11Admin Note: rcvd at work Medications atorvastatin 40 mg oral tablet 1 tablet, By Mouth, Daily, # 90 tablet, 1 Refills, Maintenance, 09/17/23 12:53:00 PM EDT, [facility] STORE 22690, 157.4, cm, 07/29/23 8:47:00 EDT, Height Start Date: 09/17/23 Status: Ordered Quantity: 90.0 Unit: tablet Repeat number: 1 clonazePAM 1 mg oral tablet 1 tablet = 1 mg, By Mouth, 2 times a day, PRN Anxiety, 255-2722, # 60 tablet, 0 Refills, Maintenance, 10/06/17 [...] 1 Refills, Maintenance, 08/19/23 10:01:00 AM EDT, [facility]/pharmacy #[id number], 157.4, cm, 07/29/23 8:47:00 EDT, [...] Refills, Maintenance, 07/29/23 9:02:00 AM EDT, Solution, [facility]/pharmacy #[id number], DX- osteoporosis, 157.4, cm, 07/29/23 [...] goiter (nontoxic)/endocrinol ogy Confirmed Active Osteoporosis Confirmed 7/20/21 Active PTSD (post-traumatic stress disorder) BH Confirmed [...] neg CT aside stones 11neg cysto 12bilateral Procedures Procedure Date Related Diagnosis Body Site Status Bone density scan- osteopeni a all areas FRAX 32.4/5.9 09/13/20 Completed Magnetic resonance (eg, prot on) imaging, spinal canal and contents, cervical; without contrast material 1 03/23/12 Completed Cystourethroscopy (separate procedure) 2 12/29/11 Completed EGD_ gastritis 3 12/03/10 Complete d 1c3-4 c6-7 disc protrusion 2neg bx 3gastritis neg h pylori Social History Social History Type Response Tobacco Use: 4 or less cigar ettes(less than 1/4 pack)/day in last 30 days. Interested in cessation: Yes. Other: 1 PPD x 20 years then reduced to 0.5 PPD now down to 0.25 PPD. Type: Cigarettes. Started at age: 17 Years. Sex Female Sex Representation Female (finding) Laboratory * Event Display: Non BH Lab Results Authored Date: * Event Display: Non BH Lab Results Authored Date: * Event Display: Laboratory Result Scanned Authored Date: * Event Display: Laboratory Result Scanned Authored Date: Radiology * Event Display: X-Ray Chest, Non- BH Authored Date: * Event Display: Ultrasound Renal, Non BH Authored Date: * Event Display: Bone Density Authored Date: * Event Display: MRI Head, Non- BH Authored Date: * Event Display: Non BH Radiology Results Authored Date: * Libardi, Jovanna: PERFORM Event Display: Radiology Results Scanned Authored Date: * Event Display: MRI Spine, Non- BH Authored Date: * SpaldingLanre liangna: PERFORM Event Display: Radiology Results Scanned Authored Date: * Event Display: MRI Spine, Non- BH Authored Date: MG Breast Views * Event Display: MM Mammogram Authored Date: * Event Display: MM Mammogram Authored Date: * Event Display: MM Mammogram Authored Date: * Event Display: MM Mammogram, Non- BH Authored Date: * Event Display: MM Mammogram, Non- BH Authored Date: * Event Display: MM Mammogram, Non- BH Authored Date: Note * Nicole Watkins: PERFORM, SIGN, VERIFY Event Display: Patient Education/Instruction Authored Date: [facility] Lois Wilson Clinical Summary Person Information Name CAROL ANN MEJIA Age 50 Years 1960 12:00 AM PCP Miya DONIS, Edward Gao PCP Reason for Visit: Allergy Info: NKA Vital Signs Height Weight BMI Blood Pressure / Temperature Pulse Rate Respiratory Rate 02 Sat Mode of Delivery / Medication Information Albuterol (Ventolin HFA 108 mcg/inh inhalation aerosol with adapter) 2 puffs, Inhalation, 4 times aday, Refills: 0 Apap/Asa/Caffeine (Excedrin) , See Instructions, By Mouth Every 6 hours, Refills: 0 Clonazepam (clonazepam 1 mg oral tablet) 1 tablet, Oral, Daily in the morning, As Needed, anxiety, Refills: 6 Fluticasone Nasal (fluticasone nasal 0.05 mg/inh spray) 2 sprays, Nasal, Tomorrow, Refills: 3 Oxycodone (oxycodone 5 mg oral tablet) 1 tablet, Oral, every 6 hours, As Needed, for pain, Refills:0 Pregabalin (Lyrica 75 mg oral capsule) 75 mg, Oral, 3 times a day, 90 days, Refills: 3 Simvastatin (simvastatin 20 mg oral tablet) 1 tablet, Oral, Daily at Bedtime, Refills: 3 Problem List Date Problem 04/04/05 Microscopic hematuria 04/04/05 Anxiety 04/04/05 Migraine 08/19/05 Aortic regurgitation 01/15/09 Fibromyalgia 01/15/09 Hyperlipidemia 01/15/09 GERD - Gastro-esophageal reflux disease 11/25/09 Bladder incontinence 02/12/11 Nephrolithiasis If the following labs have been performed in the last year, the most recent result is displayed below. Diagnostic Results Lab Result Value Date Lead Hemoglobin A1C LDL 115 11/21/10 HDL 75 11/21/10 Triglycerides 108 11/21/10 Total Cholesterol 212 11/21/10 Disclaimer: The information provided is of a general nature and is intended to be used in conjunction with the recommendations and advice of your health care practitioner. Every effort has been made to ensure that the information provided is accurate and complete at the time it is provided to you however, as your needs change, or, as new information becomes available, different or additional instructions may be required. If you have questions, please consult with your primary care provider or pharmacist, as appropriate. This information is not intended to serve as substitution for assessment and evaluation by a qualified health care provider. If you do not have a primary care provider, you may find a [facility] provider by calling [facility] [employer] [facility] at [phone]. Patient Education Information Follow-up Details: Patient Education Material: * Yusra Lopez: PERFORM Event Display: Discharge/Transfer Note Hospital Authored Date: [id number] Patient Care team information Care Team Personnel Name: Mercedes Zapata NP Position: [facility] PCO Associate Professional Member Role: PCP Address: [address] [place] [address]- Telecom: Care Team Related Persons Name: YNES RUSSO Insurance Providers Guarantor name: NATHALIA MEJIA Health Plan Information #: 1 Payer: [facility] Member Number: NA Policy Number: NA Group Number: NA
--- OUTSIDE RECORDS SUMMARY | 2024-02-29 08:40 | XMS_ITS | Continuity of Care Document ---
Author Organization [facility] Neurosurger y Address [address] [place] [address] [address], [address] [place] [address]- Care Team Providers Care Shear Operator Automatic Name Role Phone Benny INDUSTRIAL PSYCHOLOGIST, Mercedes Trinidad Primary Care Physician Encounter [facility] Date(s): 01/28/24 - 02/27/24 [facility] Neurosurgery [address] [place] [address] Drive [address] [place], [place] [address] Encounter Type: Triage Allergies, Adverse Reactions, [...] Toxoid Vaccine (oldterm) 03/01/01 Given 1Result Comment: [id number] Checklist completed 2Result Comment: [facility]-[id number] left upper deltoid 3Result Comment: [02/25/2016] work 4Result Comment: [12/04/2014] [facility] 5Admin Note: work 6Result Comment: [id number] 7Result Comment: [facility]-[id number] left lower deltoid 8Admin Note: rcvd at work per pt 9Admin Note: given at work 10Admin Note: rcvd at work 11Admin Note: rcvd at work Medications atorvastatin 40 mg oral tablet 1 tablet, By Mouth, Daily, # 90 tablet, 1 Refills, Maintenance, 09/17/23 12:53:00 PM EDT, [facility] STORE 78905, 157.4, cm, 07/29/23 8:47:00 EDT, Height Start Date: 09/17/23 Status: Ordered Quantity: 90.0 Unit: tablet Repeat number: 1 clonazePAM 1 mg oral tablet 1 tablet = 1 mg, By Mouth, 2 times a day, PRN Anxiety, 696-9702, # 60 tablet, 0 Refills, Maintenance, 10/06/17 [...] Maintenance, 02/24/24 5:33:00 PM EST, [facility], 157.4, cm, 01/19/24 14:42:00 EST, Height, 63.5, [...] Refills, Maintenance, 07/29/23 9:02:00 AM EDT, Solution, [facility]/pharmacy #[id number], DX- osteoporosis, 157.4, cm, 07/29/23 8:47:00 [...] Team Personnel Name: Mercedes Zapata NP Position: [facility] PCO Associate Professional Member Role: PCP Address: [address] [place] [address]- Telecom: Care Team Related Persons Name: YNES RUSSO Insurance Providers Guarantor name: NATHALIA MEJIA Health Plan Information #: 1 Payer: [facility] Member Number: NA Policy Number: NA Group Number: NA
--- OUTSIDE RECORDS SUMMARY | 2024-02-29 08:40 | XMS_ITS | Data Portability ---
Author Organization [place] - [facility]ijo[facility] Address [address] [place] [address] Care Team Providers Care Respiratory Practitioner Name Role Phone HERNAN MELODIE Primary Care Provider Assessment Encounter Date Assessment Date Assessment LastModified by Organization Details LastModified Time 11/15/2023 11/15/2023 I am seeing the patient today under the supervision of Dr. Mcdermott who was available but who did not see the patient. HPI: Patient is here today for evaluation of left hip pain. Patient has been having several months of pain without injury or antecedent event. She seems to be bothered by putting on socks and shoes to some extent. She does have a history of osteoporotic fractures in her ribs and vertebrae. She recently started Prolia and wonders if this is related. much more bothersome at night when sleeping on that side. Pain is predominantly lateral. Occasional anterior groin pain. No low back pain, numbness, tingling, or radicular symptoms. No treatment modalities to date. PAST MEDICAL/SURGICAL HISTORY Past medical history is reviewed per intake sheet. PHYSICAL FINDINGS On physical examination, the patient is well appearing and in no apparent distress, alert and oriented x3. Gait is symmetric. left hip reveals the skin to be intact, normal musculature, tenderness on palpation over the greater trochanter. Significant pain with range of motion of the hip particularly in external rotation, has full range of motion, no crepitus noted with range of motion. No significant pain with straight leg raise. X-rays were ordered, obtained and [facility] at [facility]: AP and lateral of the left hip demonstrates a well maintained joint space in zone 1, 2, and 3. No cam lesion, pincer lesion, crossover sign. No evidence of AVN or acute fracture. ASSESSMENT Symptomatic trochanteric bursitis left hip. PLAN I reviewed the findings with the patient, discussed different treatment options. Conservative measures were discussed at length including but not limited to physical therapy, bracing, anti-inflammator ies and injection therapies. Patient would like to try an injection. We discussed that if the injection would not be helpful in two weeks that I would recommend an MRI to rule up further intra articular pathology versus osteoporotic fracture no evidence on x-ray today. The patient understands and agrees with the plan. They know to call if they have any further questions or concerns regarding their symptoms, or to follow up sooner if needed. Please see procedure documentation for further information about the injection performed today. [email or web address] Not available 11/15/2023 09:27:54 02/17/2024 02/17/2024 I am seeing the patient today under the supervision of Dr. Leblanc who was available but who did not see the patient. The patient presents today for follow-up. Has known trochanteric bursitis of the Left hip. Has had previous cortisone injection which gave relief until recently. Has had no recent trauma, no fevers or chills, no neurovascular changes. Presents today for further evaluation. PAST MEDICAL/SURGICAL HISTORY Past medical history is reviewed per intake sheet. PHYSICAL FINDINGS On physical examination, the patient is well appearing and in no apparent distress, alert and oriented x3. Gait is symmetric. Examination of the hip reveals the skin to be intact, normal musculature, continued tenderness on palpation over the greater trochanter. No pain with range of motion of the hip, has full range of motion, no crepitus noted with range of motion. No significant pain with straight leg raise. 2 x-ray views of the Left hip were independently reviewed today : No fractures, no deformities, no DJD noted on todays exam ASSESSMENT Symptomatic trochanteric bursitis of the Left hip. PLAN I explained the nature of the diagnosis with the patient and its treatment options both conservative and surgical.Conserv ative measures were discussed at length including but not limited to physical therapy, bracing, anti-inflammator ies and injection therapies. Please see procedure note for more information about the injection performed today. The patient will follow up in 3 months. The patient understands and agrees with the plan. They know to call if they have any further questions or concerns regarding their symptoms, or to follow up sooner if needed. [email or web address] Not available 02/17/2024 07:36:41 Plan of Treatment Reminders Order Date Submit Date Provider Last Modified By Organization Details Last Modified Time Details Appointments RECHECK 15 2024 11:00A M Curtis Le PA-C Not available Not available Not available Lab None recorded . Referral None recorded . Procedures None recorded . Surgeries None recorded . Imaging XR, hip + pelvis, unilater al, 2 or 3 view - left hip ROOM 203 2023 024 [facility], [address] [address], [address], [place], [address], 11/18/2023 05:40:36 Medication Orders None recorded . Patient TargetsNo targets recorded. Patient InstructionsNo instructions recorded. Reason for Referral None Reported. Results Created Date Observation Date Name Description Value Unit Range Abnormal Flag Note LastModifiedBy Organization Detail LastModifiedTime 11/18/1911/15/2023 XR, hip + pelvi s, unila teral , 2 or 3 view http:/ [email or web address] ?Encry pted=s hAaTro YD8dLq bEUv6g %2BXZw aYqtaq 0bqfl% 2Fg9IQ a4ajBk vP9nXo QUaueC m3YtLR FvZlgJ JJ8mAn HZtai3 0g4834 AC0Kqa nmBVaS lKiQtr [facility] [address], [place], [address], 11/18/2023 05:40:36 11/18/19 24 11/15/2023 XR, hip + pelvi s, unila teral , 2 or 3 view http:/ [email or web address] ?Encry pted=s hAaTro YD8dLq bEUv6g %2BXZw aYqtaq 0bqfl% 2Fg9IQ a4ajBk vP9nXo QUaueC m3YtLR FvZlgJ JJ8mAn HZtai3 1g0425 AC0Kqa nmBVaS lKiQtr MwF [facility] [address], [place], [address], 11/18/2023 05:40:38 Result Notes None recorded. Problems Name Problem SNOMED Code Status Onset Date Resolution Date Notes Provider Name and Address Organization Details Recorded Time Pain of left hip joint 141594751613096 Active 2023 Yusra coppola, [facility] 08:53:20 Problem Notes None recorded. Procedures Surgical History Date Name Laterality Status Provider Name and Address Organization Details Recorded Time 02/17/2024 JZHip Inj completed Curtis Le PA-C [address] [employer] [facility], [place], [address], [facility] 02/17/2024 07:36:51 11/15/2023 JZHip Inj completed Curtis Le PA-C [address] [facility], [place], [address], [facility] 11/15/2023 09:16:06 Imaging Results Imaging Date Name Status LastModified by Organiz ation Details LastModified Time 11/15/2023 XR, hip + pelvis, unilateral , 2 or 3 view completed INTERFACE [facility] [address], [place], [address], 11/18/2023 05:40:36 11/15/2023 XR, hip + pelvis, unilateral , 2 or 3 view completed INTERFACE [facility] [address], [place], [address], 11/18/2023 05:40:38 Procedure Notes None recorded. Medical Equipment None Reported. Allergies No known drug allergies Medications Name Sig Start Date Stop Date Status Note LastModified by Organization Details LastModified Time atorvastatin 20 mg tablet Take 1 tablet every day by oral route. active Not Available Not Available No t Available meloxicam 15 mg tablet TAKE 1 TABLET BY MOUTH DAILY AFTER MEALS FOR 60 DAYS 2023 active Not Available Not Available Not Avai lable sertraline 100 mg tablet Take 1 tablet every day by oral route. active Not Available Not Available No t Available clonazepam 1 mg tablet Take 1 tablet 3 times a day by oral route. active Not Available Not Available No t Available gabapentin 100 mg capsule Take 1 capsule 3 times a day by oral route. active Not Available Not Available No t Available Zetia 10 mg tablet Take 1 tablet every day by oral route. active Not Available Not Available No t Available D3-2000 active Not Available Not Avail able Not Available Prolia active Not Available Not Availa ble Not Available Vitals Date Recorded Body height Body mass index (BMI) Body weight Provider Name and Address Organization Details Last Updated DateTime 11/15/2023 157.48 cm 25.6 kg/m2 13420.93 g Yusra Omar [facility] 11/15/2023 08:52:57 Date Recorded Body height Body mass index (BMI) Body weight Provider Name and Address Organization Details Last Updated DateTime 02/17/2024 157.48 cm 25.6 kg/m2 69805.93 g JANUSZ Trinidad'ARA [facility] 02/17/2024 10:00:58 Social History Question Answer Notes LastModified by Organizat ion Details LastModified Time Tobacco Smoking Status Current Every Day Smoker JANUSZ L'HEUREULianna [facility] 02/17/2024 10:01:51 What Is Your Level Of Alcohol Consumption? Occasional Information not available 02/17/2024 How Many Times Per Week Do You Consume Alcohol? Less Than 1 Time Per Week Information not available 02/17/2024 Have You Ever Been Counseled For Unhealthy Alcohol Use? No Information not available 02/17/2024 What Is Your Relationship Status? Information not available 02/17/2024 How Much Tobacco Do You Smoke? 0.25 PPD Information not available 02/17/2024 Do You Use Any Illicit Or Recreational Drugs? No Information not available 02/17/2024 Do You Or Have You Ever Used Any Other Forms Of Tobacco Or Nicotine? No Information not available 02/17/2024 Sex: Unknown Functional Status None recorded. Mental Status None recorded. Family History Nothing Reported. Medical History Condition Response Heart Trouble Y Anxiety/Depression Y Cancer Y Arthritis Y Cholesterol Y Gynecological HistoryNo gynecological history recorded. Obstetrics History GPAL:G 0 P 0 0 0 0 Past Encounters Encounter ID Performer Location Encounter Start Date Encounter Closed Date Diagnosis/Indication Diagnosis SNOMED-CT Code Diagnosis ICD10 Code [id number] NELY Arrieta [address] [place] [address] 11/15/2023 08:28:04 11/15/2023 09:45:05 Pain of left hip joint 8828122698 23631 M25.552 Trochanter ic bursitis of left hip 6998960001 91837 M70.62 [id number] NELY Arrieta [address] [place] [address] 02/17/2024 09:30:58 02/17/2024 10:16:45 Trochanteric bursitis of left hip 2762385391 38142 M70.62 Health Concerns Section Related Observation LastModified by Organization Detai ls LastModified Time None Recorded Concern Status LastModified by Organization Details LastModified Time None Recorded Advance Directives Directive None Recorded Payers Encounter Date Sequence Insurance Name Policy Number Policy Gaspar Covered Member ID Gaspar Member ID Guarantor Name 11/15/2023 1 [facility] [id number] Manolo Denney [id number] Yi Denney 02/17/2024 1 [facility] ([facility]) [id number] Manolo Denney [id number] Yi Denney OBGyn Episode No OBEpisode recorded.
--- OUTSIDE RECORDS SUMMARY | 2024-02-29 08:40 | XMS_ITS | Continuity of Care Document ---
Author Organization [place] - [facility], [facility] 1[facility] Floor Address [address] [place] [address] Care Team Providers Care Formulator Name Role Phone HERNAN, MELODIE Primary Care Provider Assessment Encounter Date Assessment Date Assessment LastModified by Organization Details LastModified Time 02/17/2024 02/17/2024 I am seeing the patient [...] or to follow up sooner if needed. [email or web address] Not available 02/17/2024 07:36:41 Plan of Treatment Reminders Order Date Submit Date Provider Last Modified By Organization Details Last Modified Time Details Appointments RECHECK 15 2024 11:00A M Curtis Le PA-C Not available Not available Not available Lab None recorded . Referral None recorded . Procedures None recorded . Surgeries None recorded . Imaging None recorded . Medication Orders None recorded . Patient TargetsNo targets recorded. Patient InstructionsNo instructions recorded. Reason for Referral None Reported. Problems Name Problem SNOMED Code Status Onset Date Resolution Date Notes Provider Name and Address Organization Details Recorded Time Pain of left hip joint [id number] [facility] 08:53:20 Problem Notes None recorded. Procedures Surgical History Date Name Laterality Status Provider Name and Address Organization Details Recorded Time 02/17/2024 JZHip Inj completed Curtis Le PA-C [address] [facility], [place], [address], [facility] 02/17/2024 07:36:51 11/15/2023 JZHip Inj completed Curtis Le PA-C [address] [facility], [place], [address], [facility] 11/15/2023 09:16:06 Imaging Results None recorded. Procedure Notes None recorded. Medical Equipment None [...] Updated DateTime 02/17/2024 157.48 cm 25.6 kg/m2 66968.93 g KAYLIA L'HEUREUX [facility] 02/17/2024 10:00:58 Social History Question Answer Notes LastModified by Organizat ion Details LastModified Time Tobacco Smoking Status Current Every Day Smoker KAYLIA L'HEUREUX [facility], [facility] 02/17/2024 10:01:51 What Is Your Level Of [...] History Nothing Reported. Medical History Condition Response Anxiety/Depression Y Heart Trouble Y Cholesterol Y Arthritis Y Cancer Y Gynecological HistoryNo gynecological history recorded. Obstetrics History GPAL:G 0 P 0 0 0 0 Past Encounters Encounter ID Performer Location Encounter Start Date Encounter Closed Date Diagnosis/Indication Diagnosis SNOMED-CT Code Diagnosis ICD10 Code [id number] NELY Arrieta 1st [address] [place] [address] 02/17/2024 09:30:58 02/17/2024 10:16:45 Trochanteric bursitis of left hip [id number] 66112 M70.62 Health Concerns Section Related Observation LastModified by Organization Detai ls LastModified Time None Recorded Concern Status LastModified by Organization Details LastModified Time None Recorded Payers Encounter Date Sequence Insurance Name Policy Number Policy Gaspar Covered Member ID Gaspar Member ID Guarantor Name 02/17/2024 1 [facility] [id number] Manolo Denney [id number] Yi Denney OBGyn Episode No OBEpisode recorded.
--- NOTE | 2024-02-29 08:50 | MHC.OFFVIS ---
Intake Visit Reasons: 6m/PVR Intake Note: Patient presents today for follow up on: nephrolithiasis, micro hematuria, recurrent uti Urology Medications: estrace cream, Vitamin B6 Blood Thinner: none PVR: 0ml's Account Support Specialist Required: No Accompanied by: Self / Same As Patient Allergies No Known Allergies Allergy (Verified 02/29/24 09:13) Medication List - Last Reviewed 02/29/24 by Emerson Nichols atorvastatin 40 mg PO DAILY bupropion HCl XL 150 mg PO QAM cholecalciferol (vitamin D3) 50 mcg PO DAILY clonazepam 1 mg PO BID PRN estradiol 0.01%(0.1mg/gram) (Estrace) 1 g vaginal 3XW 90 days ezetimibe 10 mg PO DAILY ibuprofen 600 mg PO TID PRN pyridoxine (vitamin B6) 100 mg PO DAILY 90 days sertraline 100 mg PO DAILY HPI Comments Details: Yi is a pleasant 63-year-old female patient of . She has a past medical history of microscopic hematuria, recurrent urinary tract infections, osteoporosis, renal calculi, hypercholesteremia, anxiety, and Jammie-Danlos disease. She presents to the office today for follow-up of her recurrent urinary tract infection infections, genitourinary syndrome of menopause, and microscopic hematuria. In discussion with the patient today she reports to be doing and feeling well. She denies having had any urinary tract infections and or urinary tract infection like symptoms since her last office visit here approximately 6 months ago. In review of patient's chart it appears last urinary tract infection was approximately 18 months ago. She reports compliance with Estrace cream as prescribed and is requesting refill. She denies any bothersome urinary issues or concerns at this time. She reports be happy with current voiding parameters. In office urinalysis results reviewed with the patient today. 3+ leukocytes negative nitrates. PVR 0 mL. When asked she denies urinary urgency, urinary frequency, dysuria, hematuria, change in urinary stream, flank pain, fever, and or chills. Previous workup has included a retroperitoneal ultrasound 11/21 noting right kidney with no lesions or hydronephrosis. 3 mm nonobstructing calculus in the lower pole. Left kidney with no hydronephrosis. 4 mm nonobstructing calculus in the lower pole. 3 mm nonobstructing calculus in the mid kidney. 1.5 cm simple cyst in the mid upper kidney. No follow-up imaging is recommended per radiology report. The bladder is well distended and normal. Pre void bladder volume is approximately 200 mL. Postvoid bladder volume is approximately 25 mL. When asked she reports to not be drinking plenty of water daily. She discusses having added a probiotic and has recently lost approximately 8 lb intentionally. She discusses her upcoming surgery with Dr. Quiros for her back within the next two weeks. She otherwise denies any other issues or concerns at this time. [facility], [facility] Medical History Neck pain with history of cervical spinal surgery Weak urinary stream Chest wall contusion Numbness and tingling in left hand Carpal tunnel syndrome of right wrist Numbness and tingling in right hand Microscopic hematuria Recurrent UTI Osteoporosis Renal and ureteric calculus UTI (urinary tract infection) Hematuria Hyperplastic colon polyp History of adenomatous polyp of colon History of colonic diverticulitis High cholesterol Jammie-Danlos disease Anxiety Surgical History H/O Spinal surgery History of surgery History of mandibular surgery History of appendectomy Family History Sister Uterine cancer Father Pancreatic cancer Social History Alcohol intake: never Current occupational status: employed Current occupation: right handed/ IV NURSE Gender identity: Female Review of Systems Const Reports no additional complaints Eyes Reports no additional complaints ENT Reports no additional complaints Card Reports no additional complaints Resp Reports no additional complaints GI Reports no additional complaints Reports as per HPI Musc Reports no additional complaints Neuro Reports no additional complaints Psych Reports no additional complaints Endo Reports no additional complaints Physical Exam Const General: cooperative, healthy appearing, comfortable, no acute distress, well developed, alert and awake Orientation/consciousness: patient oriented x3 Limitations: no limitations HEENT Head: Yes normal to inspection, Yes normocephalic and Yes atraumatic Ears: hearing grossly normal bilaterally Eyes General: appearance normal, both eyes and all related structures Neck Neck: Yes normal visual inspection and Yes trachea midline Chest Chest palpation & inspection: normal inspection of the chest Resp Effort & Inspection: normal respiratory effort and able to speak in complete sentences Cardio Rate: regular rate GI Inspection: Yes normal to inspection General: Yes no CVA tenderness Back/Spine/Pelvis Back: no CVA tenderness Skin General skin exam: no rashes or lesions noted Neuro General: patient oriented x3 Extrem General: Yes normal to inspection Psych Appearance: grossly normal and well kempt Mental Status: mental status grossly normal Speech and movement: Normal speech and movement present and Clear speech present Affect: normal affect Attitude: cooperative Thought process: Normal thought process present Thought content: Normal thought content present Insight: Good insight present (Psych) Judgement: Good judgement present (Psych) Office Procedures Post Void Residual Post Residual Void Post Void Residual (PVR): 0 22486-Jedi Void Residual by ultrasound Results AMB Urinalysis, Automated UA Leukoctes 500 Shagufta/uL Last Edit by [employer] Mirnaclaudia on 02/29/24 09:39 UA Nitrite Last Edit by Thermodynamic Process Controldarnell Bradleyclaudia on 02/29/24 09:39 UA Urobilinogen 0.2 mg/dL Last Edit by Profound Mirnaclaudia on 02/29/24 09:39 UA Protein 0 mg/dL Last Edit by Thermodynamic Process Controldarnell Bradley on 02/29/24 09:39 UA pH 6.0 Last Edit by Sheologyclaudia on 02/29/24 09:39 UA Blood 80 Og/uL Last Edit by Sheologyclaudia on 02/29/24 09:39 UA Specific [facility] 1.005 Last Edit by Sheologyclaudia on 02/29/24 09:39 UA Ketone Last Edit by Sheologyclaudia on 02/29/24 09:39 UA Bilirubin 0 mg/dL Last Edit by Profound Mirnaclaudia on 02/29/24 09:39 UA Glucose 0 mg/dL Last Edit by Sheologyclaudia on 02/29/24 09:39 Results Reviewed Results Reviewed: Laboratory Last Values Urine pH (Auto) 6.0 02/29/24 09:38 Specific [facility] (Auto) 1.005 02/29/24 09:38 Urine Protein (Auto) 0 mg/dL 02/29/24 09:38 Glucose (UA)(Auto) 0 mg/dL 02/29/24 09:38 Urine Blood (Auto) 80 Og/uL 02/29/24 09:38 Urine Bilirubin (Auto) 0 mg/dL 02/29/24 09:38 Urine Urobilinogen (Auto) 0.2 mg/dL 02/29/24 09:38 Leukocyte Esterase (Auto) 500 Shagufta/uL 02/29/24 09:38 Assessment & Plan Assessment & Plan (1) Microscopic hematuria: Code(s): R31.29 - Other microscopic hematuria Category: Medical (2) Recurrent UTI: Code(s): N39.0 - Urinary tract infection, site not specified Category: Medical (3) Genitourinary syndrome of menopause: Code(s): N95.8 - Other specified menopausal and perimenopausal disorders Category: Medical Plan In office urinalysis results with the patient today; as noted above; will send for urine cytology PVR 0 mL Patient currently denies any bothersome urinary issues or concerns. She reports be happy with current voiding parameters. She denies any UTI like symptoms. Continue Estrace cream as discussed and prescribed; refill provided. Discussed UTI prevention with D mannose supplement, vitamin-C, increasing fluid intake, behavioral therapy with timed voiding, perineal hygiene and postcoital voiding, and management of constipation with stool softeners and increased fiber intake. Follow-up in 6 months with PVR; or sooner with any issues, concerns, and or questions. Orders: Orders AMB Urinalysis Automated Today Z13.9 - Encounter for screening, unspecified AMB Post Void Residual by ultrasound Today N39.0 - Urinary tract infection, site not specified Urine Cytology Today R31.29 - Other microscopic hematuria Medications: Refilled estradiol 0.01%(0.1mg/gram) (Estrace) 1 g vaginal 3XW 42.5 grams 3RF 90 days Patient Instructions: The patient had an opportunity to ask questions regarding the treatment plan. All questions were answered. Physical exam, labs, and imaging were discussed and reviewed in detail. As well as risks, benefits, and discussion of treatment choices. No major barriers to understanding were identified. The patient expressed understanding and agreement with the above treatment plan. The patient was made aware they should contact our office by phone for worsening of their current condition, the appearance of new symptoms, or with any questions or concerns. Compliance is encouraged with any medications and follow up testing that is ordered. It is a privilege to be allowed the opportunity to participate in? your urological care.? Again, if you have any questions or concerns If you have any questions or concerns please do not hesitate to contact me. The office is [phone]. This note is constructed using voice recognition software. While every effort has been made to ensure accuracy emulsion coater errors may have been included. Yours sincerely, WALTER Eaton-JAVAN Coding Level of Care Code Est Pt Level 3 (47493) Complex EM visit Add On G2211 Diagnoses Microscopic hematuria R31.29 Recurrent UTI N39.0 Genitourinary syndrome of menopause N95.8 CPT Codes Post Residual Void - PVR CPT Code: 07617-Taul Void Residual by ultrasound ([id number])
== END 2024-02-29 09:27 | disposition home or self-care (01) ==
PROVIDERS: PCP Internal Medicine; Visit Provider Nurse Practitioner Family
DX: R31.29 Other microscopic hematuria (principal); N39.0 Urinary tract infection, site not specified; N95.8 Other specified menopausal and perimenopausal disorders; Z13.9 Encounter for screening, unspecified
CPT/HCPCS: 99213

== ENCOUNTER 2024-02-29 08:37 | Outpatient (REF) | payer OTHER, SELFPAY ==
[2024-02-29 15:09] LABS: Urine Cytology See Pathology rpt
== END 2024-02-29 08:38 | disposition home or self-care (01) ==
LOC: HO.LNP 08:37
PROVIDERS: PCP Internal Medicine; Visit Provider Nurse Practitioner Family
DX: R31.29 Other microscopic hematuria (principal); N39.0 Urinary tract infection, site not specified; N95.8 Other specified menopausal and perimenopausal disorders; Z13.9 Encounter for screening, unspecified
CPT/HCPCS: 51798; 81003; 88112

== ENCOUNTER 2024-03-07 09:45 | Outpatient (REF) | payer OTHER, SELFPAY ==
--- OUTSIDE RECORDS SUMMARY | 2024-03-07 10:12 | XMS_ITS | Continuity of Care Document ---
Author Organization [facility]ac[facility] Address [address] [place] [address]- Care Team Providers Care Shop Hand Name Role Phone Mercedes Zapata NP Primary Care Physician [phone] [facility] Date(s): 11/03/23 - 03/02/24 [facility] Adult [address] [place] [address]- Attending Physician: Mercedes Zapata NP Referring Physician: Sylvain oRdriguez MD Encounter Type: Pre Office Visit Allergies, Adverse Reactions, Alerts No [...] Toxoid Vaccine (oldterm) 03/01/01 Given 1Result Comment: [id number] Checklist completed 2Result Comment: [id number] left upper deltoid 3Result Comment: [02/25/2016] work 4Result Comment: [12/04/2014] [facility] 5Admin Note: work 6Result Comment: [id number] 7Result Comment: [id number] left lower deltoid 8Admin Note: rcvd at work per pt 9Admin Note: given at work 10Admin Note: rcvd at work 11Admin Note: rcvd at work Medications atorvastatin 40 mg oral tablet 1 tablet, By Mouth, Daily, # 90 tablet, 1 Refills, Maintenance, 09/17/23 12:53:00 PM EDT, [facility], 157.4, cm, 07/29/23 8:47:00 EDT, Height Start Date: 09/17/23 Status: Ordered Quantity: 90.0 Unit: tablet Repeat number: 1 clonazePAM 1 mg oral tablet 1 tablet = 1 mg, By Mouth, 2 times a day, PRN Anxiety, [id number], # 60 tablet, 0 Refills, Maintenance, 10/06/17 [...] Maintenance, 02/24/24 5:33:00 PM EST, [facility], 157.4, cm, 01/19/24 14:42:00 EST, Height, 63.5, [...] Refills, Maintenance, 07/29/23 9:02:00 AM EDT, Solution, [id number], DX- osteoporosis, 157.4, cm, 07/29/23 [...] Maintenance, 08/07/22 2:06:00 PM EDT, Aerosol, [id number], Partial fill upon patient request if the [...] Team Personnel Name: Mercedes Zapata NP Position: [facility] PCO Associate Professional Member Role: PCP Address: [address] [place] [address]- Telecom: Care Team Related Persons Name: YNES RUSSO Insurance Providers Guarantor name: NATHALIA MEJIA Health Plan Information #: 1 Payer: [facility] Member Number: [id number] Policy Number: NA Group Number: [id number] Health Plan Information #: 2 Payer: [facility] Member Number: [id number] Policy Number: NA Group Number: [id number]
--- OUTSIDE RECORDS SUMMARY | 2024-03-07 10:12 | XMS_ITS | Continuity of Care Document ---
Author Organization [place] - [facility], [facility] 1[facility] Floor Address [address] [place] [address] Care Team Providers Care Countersinker Balance Screw Hole Name Role Phone HERNAN, MELODIE Primary Care [...] or to follow up sooner if needed. [email or web address] Not available 02/17/2024 07:36:41 Plan of Treatment [...] Recorded Time Pain of left hip joint [id number] [facility] 08:53:20 Problem Notes None recorded. Procedures Surgical History Date Name Laterality Status Provider Name and Address Organization Details Recorded Time 02/17/2024 JZHip Inj completed Curtis Le PA-C [email or web address] [facility], [place], [address], [facility] 02/17/2024 07:36:51 11/15/2023 JZHip Inj completed Curtis Le PA-C [email or web address] [facility], [place], [address], [facility] 11/15/2023 09:16:06 Imaging Results None recorded. Procedure [...] Updated DateTime 02/17/2024 157.48 cm 25.6 kg/m2 98918.93 g KAYLIA L'HEUREUX [facility] 02/17/2024 10:00:58 Social History Question Answer Notes LastModified by Organizat ion Details LastModified Time Tobacco Smoking Status Current Every Day Smoker KAYLIA L'HEUREUX [facility], [facility] 02/17/2024 10:01:51 What Is Your Level Of [...] Diagnosis/Indication Diagnosis SNOMED-CT Code Diagnosis ICD10 Code Diagnosis Note [id number] NELY Arrieta 1st [address] [place] [address] 02/17/2024 09:30:58 02/17/2024 10:16:45 Trochanteric bursitis of left hip [id number] 56445 M70.62 Health Concerns Section Related Observation LastModified by Organization Detai ls LastModified Time None Recorded Concern Status LastModified by Organization Details LastModified Time None Recorded Payers Encounter Date Sequence Insurance Name Policy Number Policy Gaspar Covered Member ID Gaspar Member ID Guarantor Name 02/17/2024 1 [facility] [id number] 77 Manolo Denney [id number] Yi Denney OBGyn Episode No OBEpisode recorded.
[2024-03-07 13:40] LABS: Appearance Urine Cloudy; Color Urine Yellow; Glucose Urine UA Negative (Negative); Leukocyte Esterase Urine Large (3+) (Negative); Nitrite Urine Positive (Negative); PH 5.5 (5.0-9.0); Specific Gravity - Urine >= 1.030 (1.005-1.025); UMIC TRIGGER UACC YES; Urine Blood Moderate (2+) (Negative); Urine Ketones Trace mg/dL (Negative); Urine Protein Trace mg/dL (Neg-Trace)
[2024-03-07 13:52] LABS: Bacteria Urine 4+ (None Seen); Hyaline Casts Urine 0-2 /LPF (0-2); UACC Culture Trigger YES; WBC Urine 21-50 /HPF (0-5)
== END 2024-03-07 09:46 | disposition home or self-care (01) ==
LOC: HO.HMGCLDS 09:45
PROVIDERS: PCP Nurse Practitioner Family; Visit Provider Nurse Practitioner Family
DX: R35.0 Frequency of micturition (principal); R30.0 Dysuria; N39.0 Urinary tract infection, site not specified
CPT/HCPCS: 81001; 87086; 87088; 87186

== ENCOUNTER 2024-08-29 09:29 | Outpatient (AMB) | payer OTHER, SELFPAY ==
--- NOTE | 2024-08-29 09:33 | MHC.OFFVIS ---
Intake Visit Reasons: 6M follow Up PVR Intake Note: Patient presents today for follow up on: nephrolithiasis, micro hematuria, recurrent uti Urology Medications: estrace cream, Vitamin B6 Blood Thinner: none PVR: 0ml's Car Driver Required: No Accompanied by: Self / Same As Patient Allergies No Known Allergies Allergy (Verified 08/29/24 10:01) Medication List - Last Reconciled 08/29/24 by WALTER Eaton-JAVAN atorvastatin 40 mg PO DAILY bupropion HCl XL 150 mg PO QAM cholecalciferol (vitamin D3) 50 mcg PO DAILY clonazepam 1 mg PO BID PRN estradiol 0.01%(0.1mg/gram) (Estrace) 1 g vaginal 3XW 90 days ezetimibe 10 mg PO DAILY ibuprofen 600 mg PO TID PRN pyridoxine (vitamin B6) 100 mg PO DAILY 90 days sertraline 100 mg PO DAILY HPI Comments Details: Yi is a pleasant 64-year-old female patient of Dr. Rodriguez. She has a past medical history of microscopic hematuria, recurrent urinary tract infections, osteoporosis, renal calculi, hypercholesteremia, anxiety, and Jammie-Danlos disease. She presents to the office today for follow-up of her recurrent urinary tract infection infections, genitourinary syndrome of menopause, and microscopic hematuria. In discussion with the patient today she reports to be doing and feeling well. She discusses having experience to urinary tract infections since her last office visit here approximately 6 months ago. She reports having had 1 in March of this year and then most recently in April when she was traveling to [place] where she had to seek urgent care services. In review of patient's chart it appears urine culture 03/25 noted E coli. She currently denies any UTI like symptoms. She reports having completed antibiotic therapy as prescribed by providers. She reports compliance with Estrace cream as prescribed and is requesting a refill. She denies any bothersome urinary issues or concerns at this time. She reports be happy with current voiding parameters. In office urinalysis results reviewed with the patient today. 3+ leukocytes negative nitrates. PVR 0 mL. When asked she denies urinary urgency, urinary frequency, dysuria, hematuria, change in urinary stream, flank pain, fever, and or chills. Previous workup has included a retroperitoneal ultrasound 11/21 noting right kidney with no lesions or hydronephrosis. 3 mm nonobstructing calculus in the lower pole. Left kidney with no hydronephrosis. 4 mm nonobstructing calculus in the lower pole. 3 mm nonobstructing calculus in the mid kidney. 1.5 cm simple cyst in the mid upper kidney. No follow-up imaging is recommended per radiology report. The bladder is well distended and normal. Pre void bladder volume is approximately 200 mL. Postvoid bladder volume is approximately 25 mL. Previous workup has included a in office cystoscopy with Dr. Burgess 02/19 that was noted to be relatively normal per office note. She otherwise denies any other issues or concerns at this time. Urine cytology 03/25 Negative for high-grade urothelial carcinoma. [facility] Medical History Neck pain with history of cervical spinal surgery Weak urinary stream Chest wall contusion Numbness and tingling in left hand Carpal tunnel syndrome of right wrist Numbness and tingling in right hand Microscopic hematuria Recurrent UTI Osteoporosis Renal and ureteric calculus UTI (urinary tract infection) Hematuria Hyperplastic colon polyp History of adenomatous polyp of colon History of colonic diverticulitis High cholesterol Jammie-Danlos disease Anxiety Surgical History H/O Spinal surgery History of surgery History of mandibular surgery History of appendectomy Family History Sister Uterine cancer Father Pancreatic cancer Social History Alcohol intake: never Current occupational status: employed Current occupation: right handed/ IV NURSE Gender identity: Female Review of Systems Const Reports no additional complaints Eyes Reports no additional complaints ENT Reports no additional complaints Card Reports no additional complaints Resp Reports no additional complaints GI Reports no additional complaints Reports as per HPI Musc Reports no additional complaints Neuro Reports no additional complaints Psych Reports no additional complaints Endo Reports no additional complaints Physical Exam Const General: cooperative, healthy appearing, comfortable, no acute distress, well developed, alert and awake Orientation/consciousness: patient oriented x3 Limitations: no limitations HEENT Head: Yes normal to inspection, Yes normocephalic and Yes atraumatic Ears: hearing grossly normal bilaterally Eyes General: appearance normal, both eyes and all related structures Neck Neck: Yes normal visual inspection and Yes trachea midline Chest Chest palpation & inspection: normal inspection of the chest Resp Effort & Inspection: normal respiratory effort and able to speak in complete sentences Cardio Rate: regular rate GI Inspection: Yes normal to inspection General: Yes no CVA tenderness Back/Spine/Pelvis Back: no CVA tenderness Skin General skin exam: no rashes or lesions noted Neuro General: patient oriented x3 Extrem General: Yes normal to inspection Psych Appearance: grossly normal and well kempt Mental Status: mental status grossly normal Speech and movement: Normal speech and movement present and Clear speech present Affect: normal affect Attitude: cooperative Thought process: Normal thought process present Thought content: Normal thought content present Insight: Good insight present (Psych) Judgement: Good judgement present (Psych) Office Procedures Post Void Residual Post Residual Void Post Void Residual (PVR): 0 69371-[id number] Void Residual by ultrasound Results AMB Urinalysis, Automated UA Leukoctes 500 Shagufta/uL Last Edit by Emerson Nichols [facility] on 08/29/24 09:46 UA Nitrite Last Edit by Emerson Nichols [facility] on 08/29/24 09:46 UA Urobilinogen 0.2 mg/dL [facility] on 08/29/24 09:46 UA Protein 15 mg/dL Last Edit by Emerson Nichols [facility] on 08/29/24 09:46 UA pH 6.0 [facility] Edit [facility] on 08/29/24 09:46 UA Blood 200 Og/uL Last Edit [facility] on 08/29/24 09:46 UA Specific [place] 1.020 Last Edit by Emerson Nichols [facility] on 08/29/24 09:46 UA Ketone Last Edit by Emerson Nichols [facility] on 08/29/24 09:46 UA Bilirubin 0 mg/dL Last Edit by Emerson Nichols [facility] on 08/29/24 09:46 UA Glucose 0 mg/dL Last Edit [facility] on 08/29/24 09:46 Results Reviewed Results Reviewed: Laboratory Last Values Urine pH (Auto) 6.0 08/29/24 09:35 Specific [place] (Auto) 1.020 08/29/24 09:35 Urine Protein (Auto) 15 mg/dL 08/29/24 09:35 Glucose (UA)(Auto) 0 mg/dL 08/29/24 09:35 Urine Blood (Auto) 200 Og/uL 08/29/24 09:35 Urine Bilirubin (Auto) 0 mg/dL 08/29/24 09:35 Urine Urobilinogen (Auto) 0.2 mg/dL 08/29/24 09:35 Leukocyte Esterase (Auto) 500 Shagufta/uL 08/29/24 09:35 Assessment & Plan Assessment & Plan (1) Nephrolithiasis: Code(s): N20.0 - Calculus of kidney Category: Medical (2) Microscopic hematuria: Code(s): R31.29 - Other microscopic hematuria Category: Medical (3) Recurrent UTI: Code(s): N39.0 - Urinary tract infection, site not specified Category: Medical (4) Genitourinary syndrome of menopause: Code(s): N95.8 - Other specified menopausal and perimenopausal disorders Category: Medical Plan In office urinalysis results reviewed with the patient today; as noted above. PVR 0 mL Previous urine cytology results reviewed with the patient today; as noted above. Previous urine culture results reviewed with the patient today; as noted above. Continue Estrace cream and vitamin B6 as discussed and prescribed; refill provided. We discussed methenamine and vitamin-C in addition to Estrace cream for prevention as patient has had 2 urinary tract infections in the last 7 months. We also discussed repeat in office cystoscopy for further assessment evaluation; she will think about this. Will obtain retroperitoneal ultrasound for further assessment evaluation as patient with a longstanding history of nephrolithiasis. Discussed UTI prevention with D mannose supplement, vitamin-C, increasing fluid intake, behavioral therapy with timed voiding, perineal hygiene and postcoital voiding, and management of constipation with stool softeners and increased fiber intake. Continue adding 1 oz of lemon juice to water daily. Follow-up in 4-6 months with imaging and PVR; or sooner with any issues, concerns, and or questions. Orders: Orders AMB Urinalysis Automated Today Z13.9 - Encounter for screening, unspecified US retroperitoneal comp 3 Months N20.0 - Calculus of kidney, N39.0 - Urinary tract infection, site not specified, N95.8 - Other specified menopausal and perimenopausal disorders, R31.29 - Other microscopic hematuria AMB Post Void Residual by ultrasound Today R35.0 - Frequency of micturition Medications: Refilled estradiol 0.01%(0.1mg/gram) (Estrace) 1 g vaginal 3XW 42.5 grams 3RF 90 days pyridoxine (vitamin B6) 100 mg PO DAILY 90 tabs 1RF 90 days N20.0 - Calculus of kidney Patient Instructions: The patient had an opportunity to ask questions regarding the treatment plan. All questions were answered. Physical exam, labs, and imaging were discussed and reviewed in detail. As well as risks, benefits, and discussion of treatment choices. No major barriers to understanding were identified. The patient expressed understanding and agreement with the above treatment plan. The patient was made aware they should contact our office by phone for worsening of their current condition, the appearance of new symptoms, or with any questions or concerns. Compliance is encouraged with any medications and follow up testing that is ordered. It is a privilege to be allowed the opportunity to participate in? your urological care.? Again, if you have any questions or concerns If you have any questions or concerns please do not hesitate to contact me. The office is [phone]. This note is constructed using voice recognition software. While every effort has been made to ensure accuracy manager relocation errors may have been included. Yours sincerely, CEZAR Eaton Coding Level of Care Code Est Pt Level 3 (75845) Complex EM visit Add On G2211 Diagnoses Nephrolithiasis N20.0 Microscopic hematuria R31.29 Recurrent UTI N39.0 Genitourinary syndrome of menopause N95.8 CPT Codes Post Residual Void - PVR CPT Code: 64658-Hnon Void Residual by ultrasound ([id number])
--- OUTSIDE RECORDS SUMMARY | 2024-08-29 10:10 | XMS_ITS | Patient Health Record ---
Author Organization [facility] Address [address] [place] [address] Care Team Providers Care Sand Conditioner Machine Name Role Phone Miya DONIS, Edward Primary Care Provider Unava Diego Jonas Jr Unavailable Reason For Referral No Information Medications Medication SIG (Take, Route, Fr equency, Duration) Notes Start Date End Date Status Simvastatin 20mg 03/01/2024 03/01/2024 A ctive 1 1 tablet Orally Thre e times a day for 30 day(s) 03/05/2011 03/01/2024 Active Flagyl 500mg Active Lyrica 75mg Active clonazePAM 1mg Activ e Cipro 500mg Active Problems Problem Type SNOMED Code ICD Code Onset Dates Problem Status W/U Status Risk Notes Problem Benign neoplasm of colon (36172668) Benign neoplasm of colon (211.3) Active confirmed Problem Esophageal reflux (267154889) Esophageal reflux (530.81) Active confirmed Problem Diverticulitis of colon (535096605) Diverticulitis of colon (without mention of hemorrhage) (562.11) Active confirmed Problem Irritable bowel syndrome (95848629) Irritable bowel syndrome (564.1) Active confirmed Problem Screening for malignant neoplasm of colon (540790775) Special screening for malignant neoplasms, colon (V76.51) Active confirmed Plan Of Treatment Pending Test Test Name Order Date UPPER GI ENDOSCOPY, BIOPSY 12/03/2010 COLONOSCOPY WITH BIOPSY 12/03/2010 Insurance Providers Payer Name Payer Address Payer Phone Subscriber Number Group Number Insured Name Patient Relationship to Insured Coverage Start Date Coverage End Date [employer]E [address] [address] [place] [address] [id number] NATHALIA ALEXIS Self - patient is the insured
--- OUTSIDE RECORDS SUMMARY | 2024-08-29 10:10 | XMS_ITS | Data Portability ---
Author Organization [facility] Address [address] [place] [address] Care Team Providers Care Geochemical Manager Name Role Phone HERNAN MELODIE Primary Care [...] X-rays were ordered, obtained and reviewed at [facility]: AP and lateral of the left hip [...] further information about the injection performed today. [email or web address] Not available 11/15/2023 09:27:54 02/17/2024 02/17/2024 I [...] or to follow up sooner if needed. [email or web address] Not available 02/17/2024 07:36:41 05/15/2024 05/15/2024 I am seeing the patient today under [...] or to follow up sooner if needed. [email or web address] Not available 05/15/2024 08:08:15 Plan of Treatment Reminders Order Date Submit Date Provider Last Modified By Organization Details Last Modified Time Details Appointments RECHECK 2024 03:00P Juan Le PA-C Not available Not available Not available Lab None recorded . Referral None recorded . Procedures None recorded . Surgeries None recorded . Imaging XR, hip + pelvis, unilater al, 2 or 3 view - left hip ROOM 2023 024 [facility], [address], [place], [address], 11/18/2023 05:40:36 Medication Orders None recorded . Patient TargetsNo targets recorded. Patient InstructionsNo instructions recorded. Reason for Referral None Reported. Results Created Date Observation Date Name Description Value Unit Range Abnormal Flag Note LastModifiedBy Organization Detail LastModifiedTime 11/18/19 24 11/15/2023 XR, hip + pelvi s, unila teral , 2 or 3 view http:/ [email or web address] ?Encry pted=s hAaTro YD8dLq bEUv6g %2BXZw aYqtaq 0bqfl% 2Fg9IQ a4ajBk vP9nXo QUaueC m3YtLR FvZlgJ JJ8mAn HZtai3 9r4002 AC0Kqa nmBVaS lKiQtr MwF INTERFACE [facility] [address] [facility] [address], [place], [address], 11/18/2023 05:40:36 11/18/19 24 11/15/2023 XR, hip + pelvi s, unila teral , 2 or 3 view http:/ [email or web address] ?Encry pted=s hAaTro YD8dLq bEUv6g %2BXZw aYqtaq 0bqfl% 2Fg9IQ a4ajBk vP9nXo QUaueC m3YtLR FvZlgJ JJ8mAn HZtai3 1v0455 AC0Kqa nmBVaS lKiQtr MwF INTERFACE [facility] [address] [facility] [address], [place], [address], 11/18/2023 05:40:38 Result Notes Documentation Provider Name and Address Organization Details Recorded Time Xr, Hip + Pelvis, Unilateral, 2 Or 3 View : [email or web address] Encrypted=lwYqHzjRI8hHuvM Uv6g%9CNSexTfuds4cetf%2Fg 7VEw5lmLdgG9dQyRKsfyRh4Hi GNFvTjuHRH0hJnKXclp10y061 9SC4PvovvWGuZcGbMowGhX Not Available [facility] 11/18/2023 05:40: 37 Xr, Hip + Pelvis, Unilateral, 2 Or 3 View : [email or web address] Encrypted=gaNnAdhFM7cUjsK Uv6g%1GJOouHybkh1pgzm%2Fg 9MTv3phGvaI1bGdESelkIs1Pz VLQmWrjOLU8eWqFMtfm43j783 8UC9XlrhySApSjIjPxwLuI Not Available [facility] 11/18/2023 05:40: 38 Problems Name Problem SNOMED Code Status Onset Date Resolution Date Notes Provider Name and Address Organization Details Recorded Time Pain of left hip joint 501722941700153 [facility] 08:53:20 Problem Notes None recorded. Procedures Surgical History Date Name Laterality Status Provider Name and Address Organization Details Recorded Time 5 JZHip Inj completed Curtis Le PA-C [address] [facility], [place], [address], [facility] 05/15/2024 08:07:58 5 Head or Neck Surgery completed Sharmin De Jesus [facility] 05/15/2024 11:24:53 4 JZHip Inj completed Curtis Le PA-C [address] [facility], [place], [address], [facility] 02/17/2024 07:36:51 4 JZHip Inj completed Curtis Le PA-C [address] [facility], [place], [address], [facility] 11/15/2023 09:16:06 Imaging Results None recorded. Procedure Notes None recorded. Medical Equipment None Reported. Allergies No known drug allergies Medications Name Sig Start Date Stop Date Status Note LastModified by Organization Details LastModified Time amoxicillin 500 mg capsule TAKE 4 CAPSULES BY MOUTH 1 HOUR PRIOR TO DENTAL APPOINTME NT active Not Available Not Available No t Available atorvastati n 40 mg tablet TAKE 1 TABLET BY MOUTH EVERY DAY active Not Available Not Available No t Available atorvastati n 20 mg tablet Take 1 tablet every day by oral route. active Not Available Not Available No t Available tizanidine 2 mg tablet TAKE 1 TABLET BY MOUTH EVERY 8 HOURS FOR 14 DAYS 05/15 completed Not Available Not Available Not Available meloxicam 15 mg tablet TAKE 1 TABLET BY MOUTH DAILY AFTER A MEAL FOR 60 DAYS active Not Available Not Available No t Available sertraline 100 mg tablet Take 1 tablet every day by oral route. active Not Available Not Available No t Available clonazepam 1 mg tablet TAKE 1 TABLET BY MOUTH TWICE A DAY NEEDED FOR ANXIETY active Not Available Not Available No t Available spironolact one 25 mg tablet PLEASE SEE ATTACHED FOR DETAILED DIRECTION S 05/15 completed Not Available Not Available Not Available gabapentin 100 mg capsule Take 1 capsule 3 times a day by oral route. 05/15 completed Not Available Not Available Not Available estradiol 0.01% (0.1 mg/gram) vaginal cream APPLY 1 GRAM VAGINALLY 3 TIMES WEEKLY FOR 90 DAYS active Not Available Not Available No t Available oxycodone 5 mg tablet TAKE 1 TABLET BY MOUTH EVERY 6 HOURS FOR 7 DAYS NEEDED FOR MODERATE PAIN 05/15 completed Not Available Not Available Not Available ezetimibe 10 mg tablet TAKE 1 TABLET BY MOUTH EVERY DAY active Not Available Not Available No t Available nicotine (polacrilex ) 2 mg buccal lozenge USE 1 LOZENGE BY MOUTH EVERY 2 HOURS,X6 WEEK(S) active Not Available Not Available No t Available bupropion HCl XL 150 mg 24 hr tablet, extended release TAKE 1 TABLET BY MOUTH EVERY DAY active Not Available Not Available No t Available nitrofurant oin monohydrate /macrocryst als 100 mg capsule TAKE 1 CAPSULE BY MOUTH TWICE DAILY FOR 7 DAYS 05/15 completed Not Available Not Available Not Available D3-2000 active Not Available Not Avail able Not Available Prolia 60 mg/mL subcutaneou s syringe active Not Available Not Available No t Available Prolia active Not Available Not Availa ble Not Available Vitals Date Recorded Body height Body mass index (BMI) Body weight Provider Name and Address Organization Details Last Updated DateTime 05/15/2024 157.48 cm 23.8 kg/m2 25430.01 g Sharmin De Jesus [facility] 05/15/2024 11:26:29 Date Recorded Body height Body mass index (BMI) Body weight Provider Name and Address Organization Details Last Updated DateTime 11/15/2023 157.48 cm 25.6 kg/m2 35423.93 g Yusra Omar [facility] 11/15/2023 08:52:57 Date Recorded Body height Body mass index (BMI) Body weight Provider Name and Address Organization Details Last Updated DateTime 02/17/2024 157.48 cm 25.6 kg/m2 94538.93 g JANUSZ L'JENNYTRU [facility] 02/17/2024 10:00:58 Social History Question Answer Notes LastModified by [employer] Details LastModified Time Tobacco Smoking Status Current Every Day Smoker JANUSZ L'HEUREULianna [facility] 02/17/2024 10:01:51 Have You Ever Been Counseled For Unhealthy Alcohol Use? No Information not available 02/17/2024 What Is Your Relationship Status? Information not available 02/17/2024 How Much Tobacco Do You Smoke? 0.25 PPD Information not available 02/17/2024 Sex: Unknown Functional Status Question Answer Note LastModified by [employer] Details LastModified Time How many times per week do you consume alcohol? Less than 1 time per week Information not available 02/17/2024 Do you use any illicit or recreational drugs? No Information not available 02/17/2024 Do you or have you ever used any other forms of tobacco or nicotine? No Information not available 02/17/2024 What is your level of alcohol consumption? Occasional Information not available 02/17/2024 Mental Status None recorded. Family History Nothing Reported. Medical History Condition Response Anxiety/Depression Y Heart Trouble Y Cholesterol Y Arthritis Y Cancer Y Gynecological HistoryNo gynecological history recorded. Obstetrics History GPAL:G 0 P 0 0 0 0 Past Encounters Encounter ID Performer Location Encounter Start Date Encounter Closed Date Diagnosis/Indication Diagnosis SNOMED-CT Code Diagnosis ICD10 Code Diagnosis Note [id number] Curtis Le PA-C [facility] [address] [place] [address] 11/15/2023 08:28:04 11/15/2023 09:45:05 Pain of left hip joint 4142315321 76943 M25.552 Trochanter ic bursitis of left hip 1066425854 24927 M70.62 [id number] Curtis Le PA-C [facility] [address] [place] [address] 02/17/2024 09:30:58 03/13/2024 10:51:03 Trochanteric bursitis of left hip 7730632686 70067 M70.62 [id number] Curtis Le PA-C [facility] [address] [place] [address] 05/15/2024 10:53:10 05/26/2024 15:35:36 Trochanteric bursitis of left hip 8296068624 32603 M70.62 Pain of le ft hip joint 2795479678 64709 M25.552 Health Concerns Section Related Observation LastModified by Organization Detai ls LastModified Time None Recorded Concern Status LastModified by Organization Details LastModified Time None Recorded Advance Directives Directive None Recorded Payers Insurance Date Sequence Insurance Name Policy Number Policy Gaspar Covered Member ID Gaspar Member ID Guarantor Name 05/26/2024 1 [employer] ([facility]) [id number] Manolo Denney [id number] Yi Denney OBGyn Episode No OBEpisode recorded.
== END 2024-08-29 09:58 | disposition home or self-care (01) ==
LOC: HO.HUSH 09:30
PROVIDERS: PCP Internal Medicine; Visit Provider Nurse Practitioner Family
DX: N20.0 Calculus of kidney (principal); R31.29 Other microscopic hematuria; N39.0 Urinary tract infection, site not specified; N95.8 Other specified menopausal and perimenopausal disorders; Z13.9 Encounter for screening, unspecified
CPT/HCPCS: 99213

== ENCOUNTER → 2024-08-29 09:29 | Outpatient (BNVA) | payer OTHER, SELFPAY | PROVIDERS: PCP Internal Medicine; Visit Provider Nurse Practitioner Family | DX: N20.0 Calculus of kidney (principal) | CPT/HCPCS: 51798; 81003 ==

== ENCOUNTER 2024-11-23 09:56 | Outpatient (REF) | payer OTHER, SELFPAY ==
--- OUTSIDE RECORDS SUMMARY | 2024-11-23 11:59 | XMS_ITS | Patient Health Record ---
Author Organization [facility] Address [address] [place] [address] Care Team Providers Care Support Clerk Name Role Phone Miya (RETIRED) , Edward Primary Care Prov ider Unavailable Diego Vazquez Jr Unavailable Reason For Referral No Information [...] Risk Notes Problem Benign neoplasm of colon (00699615) Benign neoplasm of colon (211.3) Active confirmed Problem Esophageal reflux (592542309) Esophageal reflux (530.81) Active confirmed Problem Diverticulitis of colon (488033092) Diverticulitis of colon (without mention of hemorrhage) (562.11) Active confirmed Problem Irritable bowel syndrome (43166247) Irritable bowel syndrome (564.1) Active confirmed Problem Screening for malignant neoplasm of colon (756834404) Special screening for malignant neoplasms, colon (V76.51) Active confirmed Plan Of Treatment Pending Test Test Name Order Date UPPER GI ENDOSCOPY, BIOPSY 12/03/2010 COLONOSCOPY WITH BIOPSY 12/03/2010 Insurance Providers Payer Name Payer Address Payer Phone Subscriber Number Group Number Insured Name Patient Relationship to Insured Coverage Start Date Coverage End Date [employer] [address] [address] [place] [address] [id number] NATHALIA ALEXIS Self - patient is the insured
== END 2024-11-23 09:57 | disposition home or self-care (01) ==
LOC: HO.HMGCX 09:56
PROVIDERS: PCP Nurse Practitioner Family; Visit Provider Nurse Practitioner Family
DX: N20.0 Calculus of kidney (principal); R31.29 Other microscopic hematuria; N39.0 Urinary tract infection, site not specified; N95.8 Other specified menopausal and perimenopausal disorders
CPT/HCPCS: 76770

== ENCOUNTER → 2024-11-23 09:59 | Outpatient (BNV) | payer OTHER, SELFPAY | PROVIDERS: PCP Nurse Practitioner Family; Visit Provider Radiology Diagnostic Radiology | DX: N20.0 Calculus of kidney (principal) | CPT/HCPCS: 76770 ==

== ENCOUNTER 2025-02-06 13:05 | Outpatient (REF) | payer OTHER, SELFPAY | END 2025-02-06 13:06 | disposition home or self-care (01) | LOC: HO.LAB 13:05 | PROVIDERS: PCP Nurse Practitioner Family; Visit Provider Nurse Practitioner Family | DX: N20.0 Calculus of kidney (principal); N95.8 Other specified menopausal and perimenopausal disorders | CPT/HCPCS: 51798; 81003; 88112 ==

== ENCOUNTER 2025-02-06 13:05 | Outpatient (AMB) | payer OTHER, SELFPAY ==
--- NOTE | 2025-02-06 13:10 | MHC.OFFVIS ---
Intake Visit Reasons: 5m/US/PVR/UA Intake Note: Patient is present for 5M/US/PVR/UA IMAGIN11/23/24 Urology Medication:VITAMIN B6,ESTRADIOL Antibiotic Allergy:NONE Blood Thinner:NONE LAST PVR:0ML'S TODAY'S PVR:0ML'S Trim Mounter Required: No Allergies No Known Allergies Allergy (Verified 02/06/25 13:44) Medication List - Last Reconciled 02/06/25 by WALTER Eaton-JAVAN atorvastatin 40 mg PO DAILY bupropion HCl XL 150 mg PO QAM cholecalciferol (vitamin D3) 50 mcg PO DAILY clonazepam 1 mg PO BID PRN estradiol 0.01%(0.1mg/gram) (Estrace) 1 g vaginal 3XW 90 days ezetimibe 10 mg PO DAILY ibuprofen 600 mg PO TID PRN pyridoxine (vitamin B6) 100 mg PO DAILY 90 days sertraline 100 mg PO DAILY HPI Comments Details: Yi is a pleasant 64-year-old female patient of Dr. Rodriguez. She has a past medical history of microscopic hematuria, recurrent urinary tract infections, osteoporosis, renal calculi, hypercholesteremia, anxiety, and Jammie-Danlos disease. She presents to the office today for follow-up of her recurrent urinary tract infection infections, genitourinary syndrome of menopause, microscopic hematuria and nephrolithiasis. In discussion with the patient today she reports to be doing and feeling well. She denies having had any bothersome urinary issues or concerns since her last office visit here. She reports compliance with Estrace cream and vitamin B6 as discussed and prescribed. In office urinalysis results reviewed with the patient today 3+ leukocytes negative nitrates 2+ microscopic hematuria. When asked she denies any UTI like symptoms. Most recent retroperitoneal ultrasound results reviewed with the patient today. 11/23 bilateral kidneys with no hydronephrosis. Right kidney with no nephrolithiasis. Left kidney with simple cysts measuring 1.5 cm in the mid pole and nonobstructing 2-3 mm calyceal calculi. The urinary bladder is slightly lobulated without diffuse thickening. No calculi or focal lesions seen in the bladder. Postvoid bladder volume 10 mL. When asked she denies urinary urgency, urinary frequency, dysuria, hematuria, change in urinary stream, flank pain, fever, and or chills. Previous workup has included a in office cystoscopy with Dr. Burgess 02/19 that was noted to be relatively normal per office note. She otherwise denies any other issues or concerns at this time. Urine cytology 03/25 Negative for high-grade urothelial carcinoma. [facility]LY [facility] Medical History Neck pain with history of cervical spinal surgery Weak urinary stream Chest wall contusion Numbness and tingling in left hand Carpal tunnel syndrome of right wrist Numbness and tingling in right hand Microscopic hematuria Recurrent UTI Osteoporosis Renal and ureteric calculus UTI (urinary tract infection) Hematuria Hyperplastic colon polyp History of adenomatous polyp of colon History of colonic diverticulitis High cholesterol Jammie-Danlos disease Anxiety Surgical History H/O Spinal surgery History of surgery History of mandibular surgery History of appendectomy Family History Sister Uterine cancer Father Pancreatic cancer Social History Alcohol intake: never Current occupational status: employed Current occupation: right handed/ IV NURSE Gender identity: Female Review of Systems Const All systems reviewed & are unremarkable except as noted in HPI and below Physical Exam Const General: cooperative, healthy appearing, comfortable, no acute distress, well developed, alert and awake Orientation/consciousness: patient oriented x3 Limitations: no limitations HEENT Head: Yes normal to inspection, Yes normocephalic and Yes atraumatic Ears: hearing grossly normal bilaterally Eyes General: appearance normal, both eyes and all related structures Neck Neck: Yes normal visual inspection and Yes trachea midline Chest Chest palpation & inspection: normal inspection of the chest Resp Effort & Inspection: normal respiratory effort and able to speak in complete sentences Cardio Rate: regular rate GI Inspection: Yes normal to inspection General: Yes no CVA tenderness Back/Spine/Pelvis Back: no CVA tenderness Skin General skin exam: no rashes or lesions noted Neuro General: patient oriented x3 Extrem General: Yes normal to inspection Psych Appearance: grossly normal and well kempt Mental Status: mental status grossly normal Speech and movement: Normal speech and movement present and Clear speech present Affect: normal affect Attitude: cooperative Thought process: Normal thought process present Thought content: Normal thought content present Insight: Fair insight present (Psych) Judgement: Fair judgement present (Psych) Office Procedures Post Void Residual Post Residual Void Post Void Residual (PVR): 0 [id number] Void Residual by ultrasound Results Reviewed Results Reviewed: Date of Service: 11/23/24 Procedure(s): US retroperitoneal comp Findings: Right kidney normal size and echotexture, 9.0 cm length. No hydronephrosis, mass or calculus. Normal color flow. Left kidney normal size and echotexture, 10.9 cm in length. No hydronephrosis. Simple intrarenal cyst 1.5 cm at the midpole. Nonobstructing calyceal calculi 2 mm, 2 mm and 3 mm in the lower pole, 2 mm in the midpole. No abnormal vascular flow. Urinary bladder demonstrates slightly lobulated wall diffusely without convincing thickening, no calculus or focal lesion is seen, prevoid bladder volume 157 mL, postvoid residual volume 11 mL. Ureteral jets are visualized bilaterally Impression: 1. Nonobstructing left nephrolithiasis. 2. Left renal cyst. 3. Slightly lobulated bladder wall may be related to trabeculation or accentuated by underdistention. Assessment & Plan Assessment & Plan (1) Nephrolithiasis: Code(s): N20.0 - Calculus of kidney Category: Medical (2) Microscopic hematuria: Code(s): R31.29 - Other microscopic hematuria Category: Medical (3) Recurrent UTI: Code(s): N39.0 - Urinary tract infection, site not specified Category: Medical (4) Genitourinary syndrome of menopause: Code(s): N95.8 - Other specified menopausal and perimenopausal disorders Category: Medical Plan In office urinalysis results with the patient today; as noted above will send for urine cytology. PVR 0 mL She currently denies any bothersome urinary issues or concerns. She denies any UTI like symptoms. She reports be happy with current voiding parameters. Most recent retroperitoneal ultrasound results reviewed with the patient today; as noted above. We discussed nephrolithiasis well as recurrent urinary tract infections; we did discussed further treatment options and risks and benefits of these treatment options. All questions were answered. Continue vitamin B6. Continue Estrace cream as discussed and prescribed. Refills provided. We discussed the importance of adequate hydration relation to nephrolithiasis as well as recurrent urinary tract infections. Discussed UTI prevention with D mannose supplement, vitamin-C, increasing fluid intake, behavioral therapy with timed voiding, perineal hygiene and postcoital voiding, and management of constipation with stool softeners and increased fiber intake. We discussed surveillance monitoring. Will obtain renal ultrasound in 6 months. Follow-up in 6 months with imaging and PVR; or sooner with any issues, concerns, and or questions. Orders: Orders AMB Urinalysis Automated Today Z13.9 - Encounter for screening, unspecified Urine Cytology Today R31.29 - Other microscopic hematuria US renal BI 6 Months N20.0 - Calculus of kidney Medications: Refilled estradiol 0.01%(0.1mg/gram) (Estrace) 1 g vaginal 3XW 42.5 grams 3RF 90 days pyridoxine (vitamin B6) 100 mg PO DAILY 90 tabs 1RF 90 days N20.0 - Calculus of kidney Patient Instructions: The patient had an opportunity to ask questions regarding the treatment plan. All questions were answered. Physical exam, labs, and imaging were discussed and reviewed in detail. As well as risks, benefits, and discussion of treatment choices. No major barriers to understanding were identified. The patient expressed understanding and agreement with the above treatment plan. The patient was made aware they should contact our office by phone for worsening of their current condition, the appearance of new symptoms, or with any questions or concerns. Compliance is encouraged with any medications and follow up testing that is ordered. It is a privilege to be allowed the opportunity to participate in? your urological care.? Again, if you have any questions or concerns If you have any questions or concerns please do not hesitate to contact me. The office is [phone]. This note is constructed using voice recognition software. While every effort has been made to ensure accuracy chief technician errors may have been included. Yours sincerely, CEZAR Eaton Coding Level of Care Code Est Pt Level 3 (78615) Complex visit Add On G2211 Diagnoses Nephrolithiasis N20.0 Microscopic hematuria R31.29 Recurrent UTI N39.0 Genitourinary syndrome of menopause N95.8 CPT Codes Post Residual Void - PVR CPT Code: 42251-Gfbq Void Residual by ultrasound ([id number])
== END 2025-02-06 13:40 | disposition home or self-care (01) ==
LOC: HO.HUSH 13:05
PROVIDERS: PCP Nurse Practitioner Family; Visit Provider Nurse Practitioner Family
DX: N20.0 Calculus of kidney (principal); R31.29 Other microscopic hematuria; N39.0 Urinary tract infection, site not specified; N95.8 Other specified menopausal and perimenopausal disorders; Z13.9 Encounter for screening, unspecified
CPT/HCPCS: 99213